=== PATIENT | male | born 1990 | race Caucasian/White ===

== ENCOUNTER 2016-12-10 20:07 | Emergency (ER) | payer SELFPAY ==
[2016-12-10 22:46] LABS: CHLAM PCR NOT DETECTED (NOT DETECT)
[2016-12-10] MEDS ORDERED: KETOROLAC TROMETHAMINE 60 MG/2 ML SDV IM ONE (23:18)
[2016-12-10] MEDS ORDERED: DOXYCYCLINE HYCLATE 100 MG TABLET PO ONE (23:18)
[2016-12-10] MEDS ORDERED: CYCLOBENZAPRINE HCL 10 MG TABLET PO ONE (23:18)
[2016-12-10] MEDS ORDERED: METRONIDAZOLE 500 MG TABLET PO ONE (23:18)
--- NOTE | 2016-12-10 23:24 | ER Document Report ---
ED General - General Chief Complaint: STD Exposure Stated Complaint: STD CHECK Time Seen by Provider: 12/10/16 21:58 Mode of Arrival: Ambulatory Information source: Patient TRAVEL OUTSIDE OF THE [place] IN LAST 30 DAYS: No - HPI Patient complains to provider of: low back pain and dysuria Onset: Last week Quality of pain: Achy Severity: Moderate Pain Level: 3 Associated symptoms: None Exacerbated by: Movement Relieved by: Denies Similar symptoms previously: No Recently seen / treated by doctor: No Notes: Patient is a 26-year-old male who presents to the emergency room complaining of right-sided low back pain, and dysuria, low back pain is been going on since earlier today, dysuria has been going on for the past few days, he reports clear discharge from his penis as well, and painful urination, denies any blood or discoloration, he does report odor to his urine, states his girlfriend was diagnosed with trichomonas recently denies any back injury or trauma, no numbness or tingling to groin or distal extremities, no urinary retention or incontinence - Related Data Allergies/Adverse Reactions: amoxicillin Allergy (Verified 12/10/16 20:31) Penicillins Allergy (Verified 12/10/16 20:32) Past Medical History - General Information source: Patient - Social History Smoking Status: Current Every Day Smoker Frequency of alcohol use: Occasional Drug Abuse: Marijuana Family History: Reviewed & Not Pertinent Patient has suicidal ideation: No Patient has homicidal ideation: No Renal/ Medical History: Denies: Hx Peritoneal Dialysis Review of Systems - Review of Systems Constitutional: No symptoms reported EENT: No symptoms reported Cardiovascular: No symptoms reported Respiratory: No symptoms reported Gastrointestinal: No symptoms reported Genitourinary: See HPI Male Genitourinary: No symptoms reported Musculoskeletal: Back pain Skin: No symptoms reported Hematologic/Lymphatic: No symptoms reported Neurological/Psychological: No symptoms reported -: Yes All other systems reviewed and negative Physical Exam - Vital signs Vitals: Temp Pulse Resp BP Pulse Ox 98.1 F 75 16 139/84 H 99 12/10/16 20:27 12/10/16 20:27 12/10/16 20:27 12/10/16 20:27 12/10/16 20:27 Interpretation: Normal - General General appearance: Appears well, Alert - HEENT Head: Normocephalic, Atraumatic Eyes: Normal Pupils: PERRL - Respiratory Respiratory status: No respiratory distress Chest status: Nontender Breath sounds: Normal Chest palpation: Normal - Cardiovascular Rhythm: Regular Heart sounds: Normal auscultation Murmur: No - Abdominal Inspection: Normal Distension: No distension Bowel sounds: Normal Tenderness: Nontender Organomegaly: No organomegaly - Back Back: Normal, Tender - Tender to palpate in the right paraspinal musculature down into the piriformis muscle, pain with range of motion testing, negative straight leg raise - Extremities General upper extremity: Normal inspection, Nontender, Normal color, Normal ROM , Normal temperature General lower extremity: Normal inspection, Nontender, Normal color, Normal ROM , Normal temperature, Normal weight bearing. No: Ginny's sign - Neurological Neuro grossly intact: Yes Cognition: Normal Orientation: AAOx4 [place] Coma Scale Eye Opening: Spontaneous Felice Coma Scale Verbal: Oriented Felice Coma Scale Motor: Obeys Commands Felice Coma Scale Total: 15 Speech: Normal Motor strength normal: LUE, RUE, LLE, RLE Sensory: Normal - Psychological Associated symptoms: Normal affect, Normal mood - Skin Skin Temperature: Warm Skin Moisture: Dry Skin Color: Normal Course - Re-evaluation Re-evalutation: 12/11/16 03:37 Patient symptoms consistent with sciatica, he is also having dysuria and reports that his girlfriend was recently diagnosed with trichomonas, therefore he was started on antibiotic, advised to follow-up with a primary care provider or return if symptoms worsen, patient acknowledges understanding and agreement with this plan - Vital Signs Vital signs: Temp Pulse Resp BP Pulse Ox 98.4 F 74 16 124/76 98 12/10/16 23:40 12/10/16 23:40 12/10/16 23:40 12/10/16 23:40 12/10/16 23:40 Discharge - Discharge Clinical Impression: STD exposure Low back pain Qualifiers: Chronicity: acute Back pain laterality: right Sciatica presence: with sciatica Sciatica laterality: sciatica of right side Qualified Code(s): M54.41 - Lumbago with sciatica, right side Urinary tract infection Qualifiers: Urinary tract infection type: site unspecified Hematuria presence: without hematuria Qualified Code(s): N39.0 - Urinary tract infection, site not specified Condition: Stable Disposition: HOME, SELF-CARE Instructions: Urinary Tract Infection ([facility]), Low Back Pain ([facility]), Sciatica ([facility] ) Additional Instructions: Follow up with your primary care provider in one to 2 days. Return to the emergency room immediately if symptoms worsen or any additional concerns. Prescriptions: Cyclobenzaprine HCl [Flexeril 10 Mg Tablet] 10 mg PO TID #10 tablet Doxycycline Hyclate 100 mg PO BID #20 tablet Metronidazole [Flagyl 500 mg Tablet] 500 mg PO TID #30 tablet Forms: Restricted Release
[2016-12-10 23:51] VITALS: BP 124/76
== END 2016-12-10 23:45 | disposition home or self-care (01) ==
LOC: ER 20:07
DX: Z20.2 Contact with and (suspected) exposure to infections with a predominantly sexual mode of transmission (principal); M54.41 Lumbago with sciatica, right side; N39.0 Urinary tract infection, site not specified; F17.200 Nicotine dependence, unspecified, uncomplicated; F12.10 Cannabis abuse, uncomplicated
CPT/HCPCS: 99283; 96372; 87491; 87591; J1885

== ENCOUNTER 2017-10-23 18:01 | Emergency (ER) | payer OTHER ==
[2017-10-23 18:06] VITALS: BP 123/79
[2017-10-23] MEDS ORDERED: LIDOCAINE 1% INJ-PF (10 MG/ML) 30 ML SDV INJ ONE (18:44)
--- NOTE | 2017-10-23 18:47 | ER Document Report ---
ED Medical Screen (RME) - General Chief Complaint: Laceration Stated Complaint: HAND LACERATION Time Seen by Provider: 10/23/17 18:44 TRAVEL OUTSIDE OF THE U.[place]. IN LAST 30 DAYS: No - HPI Notes: 10/23/17 18:44 Patient is a 27-year-old male with no significant past medical history who presents to the ED complaining of a laceration between his left fourth and fifth digit near the webbing prior to arrival. Patient states that while he was at work his knife dropped and cut his hand. Patient states that he is still able to move his hand through range of motion, but does have pain in doing so. Patient states that the knife was relatively clean. His tetanus was updated about 3 years ago. Patient has not had any associated numbness or tingling. He has no other concerns or complaints. Patient is allergic to penicillins which causes him to swell up. Patient does admit to smoking cigarettes and marijuana. No other IV drug use. Denies any headache, fever, URI, sore throat, chest pain, palpitations, syncope, cough, shortness of breath , wheeze, dyspnea, abdominal pain, nausea/vomiting/diarrhea, urinary retention, dysuria, hematuria, muscle paralysis/weakness, or rash. I have treated and performed a rapid initial assessment of this patient. A comprehensive ED assessment and evaluation of the patient, analysis of test results and completion of medical decision making process will be conducted by additional ED providers. PHYSICAL EXAMINATION: GENERAL: Well-appearing, well-nourished and in no acute distress. A&Ox4. Answers questions appropriately. LUNGS: Breath sounds clear to auscultation bilaterally and equal. No wheezes rales or rhonchi. HEART: Regular rate and rhythm without murmurs, rubs, gallops. MS: N/v intact distal. Left the bandage in place at this time. Extremities: No cyanosis, clubbing, or edema b/l. NEUROLOGICAL: Normal speech, normal gait. PSYCH: Normal mood, normal affect. - Related Data Allergies/Adverse Reactions: amoxicillin Allergy (Verified 10/23/17 18:02) Penicillins Allergy (Verified 10/23/17 18:02) Past Medical History Renal/ Medical History: Denies: Hx Peritoneal Dialysis Physical Exam - Vital signs Vitals: Temp Pulse Resp BP Pulse Ox 98.5 F 75 18 123/79 97 10/23/17 18:05 10/23/17 18:05 10/23/17 18:05 10/23/17 18:05 10/23/17 18:05 Course - Vital Signs Vital signs: Temp Pulse Resp BP Pulse Ox 98.5 F 75 18 123/79 97 10/23/17 18:05 10/23/17 18:05 10/23/17 18:05 10/23/17 18:05 10/23/17 18:05
--- NOTE | 2017-10-23 20:26 | ER Document Report ---
ED General - General Chief Complaint: Laceration Stated Complaint: HAND LACERATION Time Seen by Provider: 10/23/17 18:44 TRAVEL OUTSIDE OF THE [place] IN LAST 30 DAYS: No - HPI Notes: 27-year-old male, right-handed presents for left hand laceration. Patient was at work when he is actually cut with a bird sitter knife. Clean. Sustain a 2.5-3 cm laceration in the webspace of his between the fourth and fifth digits. Minimal blood loss on scene. Tetanus is up-to-date. Sharp burning pain, nonradiating. Sudden onset. No other modifying factors, no other associated symptoms, no other provocative or palliative factors. - Related Data Allergies/Adverse Reactions: amoxicillin Allergy (Verified 10/23/17 18:02) Penicillins Allergy (Verified 10/23/17 18:02) Past Medical History - Social History Smoking Status: Current Every Day Smoker Chew tobacco use (# tins/day): No Frequency of alcohol use: weekly Drug Abuse: Marijuana Family History: Reviewed & Not Pertinent Patient has suicidal ideation: No Patient has homicidal ideation: No - Medical History Medical History: Negative Renal/ Medical History: Denies: Hx Peritoneal Dialysis Review of Systems - Review of Systems Notes: Denies chest pain, abdominal pain, headache or other complaints Physical Exam - Vital signs Vitals: Temp Pulse Resp BP Pulse Ox 98.5 F 75 18 123/79 97 10/23/17 18:05 10/23/17 18:05 10/23/17 18:05 10/23/17 18:05 10/23/17 18:05 - Notes Notes: General: Well-developed, well-nourished HEENT: Normocephalic. No external trauma noted. No rincon sign, no hemotympanum. Mucosa is moist. No intraoral trauma. Neck: Midline trachea, no JVD. No midline cervical spine tenderness. No step- off or deformity. Chest: Normal excursion, no accessory muscle use. No gross trauma. Abdomen: Soft, nondistended. Nontender. No bruising. Pelvis: Stable. Vascular: Strong and symmetric upper and lower extremity pulses. Well-perfused extremities. Motor: Normal tone and power. Neurologic: Alert, nonfocal. Sensation symmetric and intact. Skin: No significant lacerations or purpura. Extremities: No cyanosis. There is a 3 cm gaping laceration noted in the webspace between the fourth and fifth digits on the left hand, venous oozing is noted. No arterial bleed. Course - Re-evaluation Re-evalutation: This is a well-appearing male with isolated hand laceration. His tetanus status is up-to-date. Plan to proceed with local anesthesia, laceration repair , outpatient follow-up. Sutures to be removed in 10 days. Procedure laceration: After anesthesia with 1% lidocaine without epinephrine via local infiltration, the wound is irrigated copiously with normal saline and explored. There is no evidence of tenderness, nerve or vascular disruption. The wound is then closed using simple interrupted sutures of 5-0 Ethilon, there is a total of 3 cm of wound closure achieved. No complications. Singulair. - Vital Signs Vital signs: Temp Pulse Resp BP Pulse Ox 98.5 F 75 18 123/79 97 10/23/17 18:05 10/23/17 18:05 10/23/17 18:05 10/23/17 18:05 10/23/17 18:05 Discharge - Discharge Clinical Impression: Hand laceration Qualifiers: Encounter type: initial encounter Foreign body presence: without foreign body Laterality: left Qualified Code(s): S61.412A - Laceration without foreign body of left hand, initial encounter Condition: Good Disposition: HOME, SELF-CARE Instructions: Laceration Care ([facility])
== END 2017-10-23 20:56 | disposition home or self-care (01) ==
LOC: ER 18:01
DX: S61.412A Laceration without foreign body of left hand, initial encounter (principal); W26.0XXA Contact with knife, initial encounter; Y99.0 Civilian activity done for income or pay; F17.200 Nicotine dependence, unspecified, uncomplicated
CPT/HCPCS: 99282; J3490

== ENCOUNTER 2018-04-24 17:11 | Emergency (ER) | payer SELFPAY ==
[2018-04-24] MEDS ORDERED: LIDOCAINE 5% (700 MG) TRANSDERMAL ADH..PATCH TP ONE (17:58)
[2018-04-24] MEDS ORDERED: OXYCODONE-ACETAMINOPHEN 5-325 MG TABLET PO ONE (17:58)
--- NOTE | 2018-04-24 18:01 | ER Document Report ---
HPI - HPI Patient complains to provider of: Low back pain Onset: Other - 3 days Onset/Duration: Persistent Quality of pain: Achy Pain Level: 5 Context: Patient presents complaining of right lower back pain for the past 3 days. Patient does have a history of sciatica and suspects the same. Patient also complains of a palpable nodule to lower back area. Patient denies any fever. Patient denies any injury. Patient denies any urinary retention or incontinence symptoms. Associated Symptoms: Other - Right lower back. denies: Fever, Nausea, Vomiting Exacerbated by: Movement Relieved by: Denies Similar symptoms previously: Yes Recently seen / treated by doctor: No - ROS ROS below otherwise negative: Yes Systems Reviewed and Negative: Yes All other systems reviewed and negative - CONSTITUTIONAL Constitutional: DENIES: Fever, Chills - NEURO Neurology: DENIES: Headache - GASTROINTESTINAL Gastrointestinal: DENIES: Nausea - URINARY Urinary: DENIES: Dysuria - MUSCULOSKELETAL Musculoskeletal: REPORTS: Back Pain - DERM Skin Color: Normal Skin Problems: Cyst Past Medical History - General Information source: Patient - Social History Smoking Status: Never Smoker Frequency of alcohol use: Occasional Drug Abuse: Marijuana Occupation: [employer] Lives with: Family Family History: Reviewed & Not Pertinent Renal/ Medical History: Denies: Hx Peritoneal Dialysis GI Medical History: Reports: Hx Crohn's Disease Musculoskeletal Medical History: Reports Other - Sciatica Surgical Hx: Negative Vertical Provider Document - CONSTITUTIONAL Agree With Documented VS: Yes Exam Limitations: No Limitations General Appearance: WD/WN, No Apparent Distress Notes: PHYSICAL EXAMINATION: GENERAL: Well-appearing, well-nourished and in no acute distress. HEAD: Atraumatic, normocephalic. EYES: sclera clear, anicteric, conjunctiva are normal. ENT: nares patent, Moist mucous membranes. NECK: Normal range of motion, supple no lymphadenopathy LUNGS: respirations unlabored HEART: Regular rate and rhythm without murmurs EXTREMITIES: Normal range of motion, no pitting or edema. No cyanosis. Gait normal, pt ambulates without difficulty BACK: Right lumbar paraspinal tenderness, no midline tenderness, right SI joint tenderness no deformities or step-offs. No CVA tenderness. NEUROLOGICAL: Cranial nerves grossly intact. Normal speech, normal gait. No saddle anesthesia. PSYCH: Normal mood, normal affect. SKIN: Patient with mobile cystic type lesion to the right lower back, skin warm , Dry, normal turgor, no rashes - INFECTION CONTROL TRAVEL OUTSIDE OF THE [place] IN LAST 30 DAYS: No Course - Re-evaluation Re-evalutation: 04/24/18 17:59 The patient presents with low back pain without signs of spinal cord compression , cauda equina syndrome, infection, aneurysm, or other serious etiology. The patient is neurologically intact. Given the extremely risk of these diagnoses further testing and evaluation for these possibilities does not appear to be indicated at this time. Patient has been instructed to return if the symptoms worsen or change in any way. - Vital Signs Vital signs: Temp Pulse Resp BP Pulse Ox 98.7 F 74 16 118/71 98 04/24/18 17:16 04/24/18 17:16 04/24/18 17:16 04/24/18 17:16 04/24/18 17:16 Discharge - Discharge Clinical Impression: Subcutaneous cyst Sciatica Qualifiers: Laterality: right Qualified Code(s): M54.31 - Sciatica, right side Condition: Stable Disposition: HOME, SELF-CARE Instructions: Ice Packs ([facility]), Low Back Pain ([facility]), Sciatica ([facility]) Additional Instructions: Return immediately for any new or worsening symptoms Followup with your primary care provider, call tomorrow to make a followup appointment Follow-up with orthopedics for further evaluation of your chronic back pain Follow-up with a general surgeon for further evaluation of cystic lesion to lower back Prescriptions: Cyclobenzaprine HCl [Flexeril 10 Mg Tablet] 10 mg PO TID #15 tablet Naproxen [Naprosyn 250 Nmg Tablet] 1 tab PO BID #14 tablet Forms: Return to Work Referrals: [facility] [Provider Group] - Follow up as needed [facility] [Provider Group] - Follow up as needed
[2018-04-24 18:29] VITALS: BP 123/76
== END 2018-04-24 18:28 | disposition home or self-care (01) ==
LOC: ER 17:11
DX: M54.41 Lumbago with sciatica, right side (principal); L72.9 Follicular cyst of the skin and subcutaneous tissue, unspecified; F12.10 Cannabis abuse, uncomplicated
CPT/HCPCS: 99283

== ENCOUNTER 2018-04-30 17:27 | Emergency (ER) | payer SELFPAY ==
[2018-04-30 17:43] VITALS: BP 127/80
[2018-04-30] MEDS ORDERED: DEXAMETHASONE CONC 1 MG/ML SOLN PO ONE (18:36)
--- NOTE | 2018-04-30 18:41 | ER Document Report ---
ED Medical Screen (RME) - General Chief Complaint: Neck Swelling Stated Complaint: THROAT PAIN Time Seen by Provider: 04/30/18 18:29 Mode of Arrival: Ambulatory TRAVEL OUTSIDE OF THE [place] 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 He notes that his throat has felt somewhat swollen since that time. Denies any difficulty breathing, denies any chest pain, fevers, chills, emesis, lightheadedness, passing out, abdominal pain, constipation, dysuria. - Related Data Allergies/Adverse Reactions: amoxicillin Allergy (Verified 04/24/18 17:14) Penicillins Allergy (Verified 04/24/18 17:14) Past Medical History - General Information source: Patient - Social History Cigarette use (# per day): No Chew tobacco use (# tins/day): No Frequency of alcohol use: Occasional Drug Abuse: Marijuana Renal/ Medical History: Denies: Hx Peritoneal Dialysis GI Medical History: Reports: Hx Crohn's Disease Review of Systems - Review of Systems -: Yes All other systems reviewed and negative Physical Exam - Vital signs Vitals: Temp Pulse Resp BP Pulse Ox 99.0 F 78 16 127/80 H 99 04/30/18 17:42 04/30/18 17:42 04/30/18 17:42 04/30/18 17:42 04/30/18 17:42 - General General appearance: Appears well In distress: None - HEENT Head: Normocephalic Eyes: Normal Conjunctiva: Normal Cornea: Normal Extraocular movements intact: Yes Eyelashes: Normal Pupils: PERRL Pharynx: Erythema, Uvular edema Neck: Lymphadenopathy, Shotty nodes - Respiratory Respiratory status: No respiratory distress Chest status: Nontender Breath sounds: Normal Chest palpation: Normal - Cardiovascular Rhythm: Regular Heart sounds: Normal auscultation Murmur: No - Abdominal Inspection: Normal Distension: No distension Tenderness: Nontender Organomegaly: No organomegaly - Back Back: Normal - Extremities General upper extremity: Normal inspection, Nontender, Normal ROM, Normal strength General lower extremity: Normal inspection, Nontender, Normal ROM, Normal strength - Neurological Neuro grossly intact: Yes Cognition: Normal Orientation: AAOx4 [place] Coma Scale Eye Opening: Spontaneous Felice Coma Scale Verbal: Oriented [place] Coma Scale Motor: Obeys Commands [place] Coma Scale Total: 15 Speech: Normal Course - Re-evaluation Re-evalutation: 04/30/18 18:44 Well-appearing 27-year-old man presents for evaluation of sore throat. Patient has no systemic signs to suggest toxic underlying cause such as epiglottitis. Does not have any symptoms to suggest [place] angina. Patient has an obvious pharyngitis, his uvula is erythematous. Do not believe that he has a strep pharyngitis given his age, he does have a cough, lowers his risk of strep significantly. We will plan for this patient undergo treatment with Decadron discharge with follow-up and return precautions encouraged to follow-up with his primary physician. - Vital Signs Vital signs: Temp Pulse Resp BP Pulse Ox 99.0 F 78 16 127/80 H 99 04/30/18 17:42 04/30/18 17:42 04/30/18 17:42 04/30/18 17:42 04/30/18 17:42 Doctor's Discharge - Discharge Clinical Impression: Pharyngitis Qualifiers: Pharyngitis/tonsillitis etiology: unspecified etiology Qualified Code(s): J02.9 - Acute pharyngitis, unspecified Condition: Good Disposition: HOME, SELF-CARE Instructions: Sore Throat ([facility]) Additional Instructions: You were seen today in the emergency department for your sore throat. You had an evaluation including a physical exam, it appears that you have pharyngitis. You were given a dose of Decadron. You should continue to monitor yourself for symptoms, use ibuprofen as well as the naproxen for your sore throat as necessary. Make sure you are drinking cold drinks to help soothe your throat. In case of any worsening swelling, inability to eat or drink, if you have wheezing or cannot catch her breath return to the emergency room as it may be a more serious condition.
== END 2018-04-30 18:45 | disposition home or self-care (01) ==
LOC: ER 17:27
DX: J02.9 Acute pharyngitis, unspecified (principal); R59.0 Localized enlarged lymph nodes; F12.10 Cannabis abuse, uncomplicated; Z88.0 Allergy status to penicillin; R05 Cough
CPT/HCPCS: 99283; J8540

== ENCOUNTER 2018-10-04 11:25 | Emergency (ER) | payer OTHER ==
--- NOTE | 2018-10-04 13:04 | ER Document Report ---
ED Medical Screen (RME) - General Chief Complaint: Passed Out Prior to Arrival Stated Complaint: SYNCOPE Time Seen by Provider: 10/04/18 12:54 TRAVEL OUTSIDE OF THE [place] IN LAST 30 DAYS: No - HPI Notes: 10/04/18 13:03 Patient is a 28-year-old male that presents to the emergency department for chief complaint of syncope. Patient was at work and cut his left middle finger on a piece of plastic. He states he then had a syncopal episode. He denies prodrome of lightheadedness nausea or feeling hot. He states he woke up on the ground. He is not sure if he hit his head. He states for a few seconds he felt disoriented but then became oriented again. He had no loss of bowel or bladder incontinence. He states he is still feeling very lightheaded and dizzy patient states he has had a syncopal episode in the last few months but was heavily intoxicated at the time.. He denies history of seizures in the past but a coworker that witnessed the events that he was shaking all over ROS: GENERAL: Denies fever of chills CV: Denies chest pain PHYSICAL EXAMINATION: GENERAL: Well-appearing, well-nourished and in no acute distress. HEAD: Atraumatic, normocephalic. EYES: Pupils equal round extraocular movements intact, conjunctiva are normal. ENT: Nares patent NECK: Normal range of motion LUNGS: No respiratory distress Musculoskeletal: Normal range of motion NEUROLOGICAL: Normal speech, normal gait. PSYCH: Normal mood, normal affect. MDM: Patient seen and examined for rapid initial assessment. Vital signs reviewed. A comprehensive ED assessment and evaluation of the patient, analysis of test results and completion of the medical decision making process will be conducted by additional ED providers. - Related Data Allergies/Adverse Reactions: amoxicillin Allergy (Verified 04/24/18 17:14) Penicillins Allergy (Verified 04/24/18 17:14) Past Medical History - Social History Chew tobacco use (# tins/day): No Frequency of alcohol use: Occasional Drug Abuse: Marijuana Renal/ Medical History: Denies: Hx Peritoneal Dialysis GI Medical History: Reports: Hx Crohn's Disease Physical Exam - Vital signs Vitals: Temp Pulse Resp BP Pulse Ox 98.0 F 54 L 18 103/66 100 10/04/18 11:36 10/04/18 11:36 10/04/18 11:36 10/04/18 11:36 10/04/18 11:36 Course - Vital Signs Vital signs: Temp Pulse Resp BP Pulse Ox 98.0 F 54 L 18 103/66 100 10/04/18 11:36 10/04/18 11:36 10/04/18 11:36 10/04/18 11:36 10/04/18 11:36
--- NOTE | 2018-10-04 13:45 | RADIOLOGY REPORT (SQ) ---
EXAM DESCRIPTION: CT HEAD WITHOUT COMPLETED DATE/TIME: 10/04/2018 1:35 pm REASON FOR STUDY: syncope COMPARISON: None. TECHNIQUE: Axial images acquired through the brain without intravenous contrast. Images reviewed wi th bone, brain and subdural windows. Additional sagittal and coronal reconstructions were generated. Images stored on PACS. All CT scanners at this facility use dose modulation, iterative reconstruction, and/or weight based d osing when appropriate to reduce radiation dose to as low as reasonably achievable (ALARA). [facility]: Dose Right [facility]: CareDose [facility]: Dose Right [facility]: Teradose 4D [facility]: Covocative RADIATION DOSE: CT Rad equipment meets quality standard of care and radiation dose reduction techniq ues were employed. CTDIvol: 53.2 mGy. DLP: 991 mGy-cm. mGy. LIMITATIONS: None. FINDINGS: VENTRICLES: Normal size and contour. CEREBRUM: No masses. No hemorrhage. No midline shift. No evidence for acute infarction. Normal gra y/white matter differentiation. No areas of low density in the white matter. CEREBELLUM: No masses. No hemorrhage. No alteration of density. No evidence for acute infarction. EXTRAAXIAL SPACES: No fluid collections. No masses. ORBITS AND GLOBE: No intra- or extraconal masses. Normal contour of globe without masses. CALVARIUM: No fracture. PARANASAL SINUSES: No fluid or mucosal thickening. SOFT TISSUES: No mass or hematoma. OTHER: No other significant finding. IMPRESSION: NORMAL BRAIN CT WITHOUT CONTRAST. EVIDENCE OF ACUTE STROKE: NO. COMMENT: Quality ID # [id number]: Final reports with documentation of one or more dose reduction techniques (e.g., Automated exposure control, adjustment of the mA and/or kV according to patient size, use of iterative reconstruction technique) TECHNICAL DOCUMENTATION: JOB ID: [id number] [employer]- All Rights Reserved Reading location - IP/workstation name: [email or web address]
--- NOTE | 2018-10-04 13:47 | RADIOLOGY REPORT (SQ) ---
EXAM DESCRIPTION: CHEST SINGLE VIEW COMPLETED DATE/TIME: 10/04/2018 1:34 pm REASON FOR STUDY: syncope COMPARISON: None. EXAM PARAMETERS: NUMBER OF VIEWS: One view. TECHNIQUE: Single frontal radiographic view of the chest acquired. RADIATION DOSE: NA LIMITATIONS: None. FINDINGS: LUNGS AND PLEURA: No opacities, masses or pneumothorax. No pleural effusion. MEDIASTINUM AND HILAR STRUCTURES: No masses. Contour normal. HEART AND VASCULAR STRUCTURES: Heart normal in size. Normal vasculature. BONES: No acute findings. HARDWARE: None in the chest. OTHER: No other significant finding. IMPRESSION: NO ACUTE RADIOGRAPHIC FINDING IN THE CHEST. TECHNICAL DOCUMENTATION: JOB ID: [id number] [employer]- All Rights Reserved Reading location - IP/workstation name: [email or web address]
[2018-10-04 13:48] LABS: ABSOLUTE EOSINOPHILS # (AUTO) 0.1 10^3/uL (0.0-0.6); ABSOLUTE LYMPHOCYTES (AUTO) 1.8 10^3/uL (0.5-4.7); ABSOLUTE MONOCYTES (AUTO) 0.5 10^3/uL (0.1-1.4); ABSOLUTE NEUT (AUTO) 6.6 10^3/uL (1.7-8.2); BASOPHILS % (AUTO) 0.4 % (0-2); EOSINOPHILS % (AUTO) 1.4 % (0-6); HEMATOCRIT 46.6 % (37.9-51.0); HEMOGLOBIN 16.1 g/dL (13.5-17.0); LYMPHOCYTES % (AUTO) 20.1 % (13-45); MEAN CORPUSCULAR HGB CONC 34.6 g/dL (32.0-36.0); MEAN CORPUSCULAR VOLUME 90 fl (80-97); MONOCYTES % (AUTO) 5.7 % (3-13); PLATELET COUNT 235 10^3/uL (150-450); RED BLOOD COUNT 5.19 10^6/uL (4.35-5.55); RED CELL DISTRIBUTION WIDTH 12.6 % (11.5-14.0); SEGMENTED NEUTROPHILS % (AUTO) 72.4 % (42-78); TOTAL CELLS COUNTED % (AUTO) 100 %; WHITE BLOOD COUNT 9.1 10^3/uL (4.0-10.5)
[2018-10-04 14:12] LABS: ANION GAP 11 (5-19); BLOOD UREA NITROGEN 14 mg/dL (7-20); CALCIUM 10.3 mg/dL (8.4-10.2); CARBON DIOXIDE 25 mmol/L (22-30); CHLORIDE 102 mmol/L (98-107); GLUCOSE 86 mg/dL (75-110); POTASSIUM 4.4 mmol/L (3.6-5.0); SODIUM 137.6 mmol/L (137-145)
[2018-10-04 14:13] LABS: ALCOHOL < 10 mg/dL (NONE DETECTED)
--- NOTE | 2018-10-04 16:24 | EKG REPORT ---
SEVERITY:- ABNORMAL ECG - SINUS RHYTHM. NONSPECIFIC INTRAVENTRICULAR CONDUCTION DELAY : Confirmed by: Jerrell Curran MD 04-Oct-2018 16:22:28
[2018-10-04] MEDS ORDERED: LORAZEPAM 1 MG TABLET PO ONE (17:12)
--- NOTE | 2018-10-04 17:13 | ER Document Report ---
ED Dizziness/Weakness - General Chief Complaint: Passed Out Prior to Arrival Stated Complaint: SYNCOPE Time Seen by Provider: 10/04/18 12:54 Mode of Arrival: Ambulatory Information source: Patient Notes: Pt is a 28 year old male who presents to the ER today for syncopal episode that occurred while he was bandaging his finger after accidentally cutting it on plastic at work today. He is up to date on tetanus. Pt states that he did not get lightheaded, and was not bothered by the cut on his finger, was bandaging it and just "fell out." He states it was witnessed by his boss who says he shook all over for a few minutes and was "pouring sweat" at the end. Pt woke up very tired and confused with a headache to the front of his head. He has had an episode like this in the past but it was 10 years ago, was never evalauted for it. Pt denies any sick symptoms lately. TRAVEL OUTSIDE OF THE [place] IN LAST 30 DAYS: No - Related Data Allergies/Adverse Reactions: amoxicillin Allergy (Verified 04/24/18 17:14) Penicillins Allergy (Verified 04/24/18 17:14) Past Medical History - General Information source: Patient - Social History Smoking Status: Current Every Day Smoker Chew tobacco use (# tins/day): No Frequency of alcohol use: Occasional Drug Abuse: Marijuana Family History: Reviewed & Not Pertinent Patient has suicidal ideation: No Patient has homicidal ideation: No Renal/ Medical History: Denies: Hx Peritoneal Dialysis GI Medical History: Reports: Hx Crohn's Disease Review of Systems - Review of Systems Constitutional: No symptoms reported EENT: No symptoms reported Cardiovascular: No symptoms reported Respiratory: No symptoms reported Gastrointestinal: No symptoms reported Genitourinary: No symptoms reported Male Genitourinary: No symptoms reported Musculoskeletal: No symptoms reported Skin: See HPI Hematologic/Lymphatic: No symptoms reported Neurological/Psychological: See HPI Physical Exam - Vital signs Vitals: Temp Pulse Resp BP Pulse Ox 98.0 F 54 L 18 103/66 100 10/04/18 11:36 10/04/18 11:36 10/04/18 11:36 10/04/18 11:36 10/04/18 11:36 - Notes Notes: PHYSICAL EXAMINATION: GENERAL: well-appearing and in no acute distress. HEAD: Atraumatic, normocephalic. EYES: Pupils equal round and reactive to light, extraocular movements intact, sclera anicteric, conjunctiva are normal. NECK: Normal range of motion, supple without lymphadenopathy LUNGS: CTAB and equal. No wheezes rales or rhonchi. HEART: Regular rate and rhythm without murmurs ABDOMEN: Soft, no tenderness. No guarding, no rebound EXTREMITIES: Normal range of motion, no pitting edema. No cyanosis. NEUROLOGICAL: Cranial nerves grossly intact. Normal sensory/motor exams. PSYCH: Normal mood, normal affect. SKIN: Warm, Dry, normal turgor,small less than 1cm laceration to left 3rd digit over PIP joint, no bleeding Course - Re-evaluation Re-evalutation: 10/04/18 23:[address] head unremarkable today, pt does not want me to suture laceration, it was cleaned, bandaged and his finger placed in finger splint. I believe pt had a seizure today, I offered to send him to another facility with neurology land acquisition analyst (we do not have neurology on today) to be further evaluated for new seizures, but he wants to go back to work, I will give him neurology followup and send him home with diastat rectally if needed during seizure, he got ativan here. As he has only had two episodes in 10 years of possible seizures, I will not start him on seizure medication daily. Pt agrees with this plan. - Vital Signs Vital signs: Temp Pulse Resp BP Pulse Ox 98.3 F 63 18 119/69 100 10/04/18 17:37 10/04/18 17:37 10/04/18 11:36 10/04/18 17:37 10/04/18 17:37 - Laboratory Result Diagrams: 10/04/18 13:31 10/04/18 13:31 Laboratory results interpreted by me: 10/04/18 13:31 Calcium 10.3 H Discharge - Discharge Clinical Impression: Observed seizure-like activity Finger laceration Qualifiers: Encounter type: initial encounter Finger: ring finger Damage to nail status: without damage Foreign body presence: without foreign body Laterality: left Qualified Code(s): S61.215A - Laceration without foreign body of left ring finger without damage to nail, initial encounter Condition: Stable Disposition: HOME, SELF-CARE Instructions: New Seizure ([facility]) Additional Instructions: Return immediately for any new or worsening symptoms. Follow up with the neurologist, call tomorrow to make followup appointment. [facility] Address: [address] [place] [address] Prescriptions: Diazepam [Diastat Acudial 10 mg/2 ml Rectal Gel] 1 each RC PRN PRN #1 kit PRN Reason: Forms: Return to Work
[2018-10-04 17:39] VITALS: BP 119/69
== END 2018-10-04 18:17 | disposition home or self-care (01) ==
LOC: ER 11:25
DX: R56.9 Unspecified convulsions (principal); R55 Syncope and collapse; S61.214A Laceration without foreign body of right ring finger without damage to nail, initial encounter; W26.9XXA Contact with unspecified sharp object(s), initial encounter; Y99.0 Civilian activity done for income or pay; F17.200 Nicotine dependence, unspecified, uncomplicated
CPT/HCPCS: 36415; 70450; 71045; 80048; 80307; 84484; 85025; 93005; 93010; 99284

== ENCOUNTER 2019-01-24 00:09 | Emergency (ER) | payer SELFPAY ==
[2019-01-24] MEDS ORDERED: ONDANSETRON 4 MG TAB.RAPDIS PO ONE (03:43)
[2019-01-24] MEDS ORDERED: LIDOCAINE 1%/EPINEPHRINE INJ 20 ML VIAL INJ ONE (03:43)
[2019-01-24] MEDS ORDERED: MORPHINE SULFATE 10 MG/ML INJ IM ONE (03:43)
--- NOTE | 2019-01-24 03:44 | ER Document Report ---
ED Skin Rash/Insect Bite/Abscs - General Chief Complaint: Cyst Stated Complaint: POSSIBLE CYST ON SCIATIC NERVE, PAIN Time Seen by Provider: 01/24/19 03:38 Notes: Patient is a 28-year-old male that comes to the emergency department for chief complaint of 2 to 3 days of progressive worsening pain over his right lower back at the top of his buttocks. He states that it is hard to sit or walk now because the pain is gotten so bad. He denies fever/chills. He states he was told in the past that he might have a "sciatic problem", he is unsure if this is related. He denies any daily medications, surgical history, IV drug abuse. He denies focal numbness or weakness, incontinence. He denies any other areas of pain. TRAVEL OUTSIDE OF THE [place] IN LAST 30 DAYS: No - Related Data Allergies/Adverse Reactions: amoxicillin Allergy (Verified 04/24/18 17:14) Penicillins Allergy (Verified 04/24/18 17:14) Past Medical History - General Information source: Patient - Social History Smoking Status: Never Smoker Drug Abuse: None Lives with: Family Family History: Reviewed & Not Pertinent Renal/ Medical History: Denies: Hx Peritoneal Dialysis GI Medical History: Reports: Hx Crohn's Disease Surgical Hx: Negative - Immunizations Immunizations up to date: Yes Hx Diphtheria, Pertussis, Tetanus Vaccination: Yes Review of Systems - Review of Systems Constitutional: No symptoms reported EENT: No symptoms reported Cardiovascular: No symptoms reported Respiratory: No symptoms reported Gastrointestinal: No symptoms reported Genitourinary: No symptoms reported Male Genitourinary: No symptoms reported Musculoskeletal: See HPI Skin: See HPI Hematologic/Lymphatic: No symptoms reported Neurological/Psychological: No symptoms reported Physical Exam - Vital signs Vitals: Temp Pulse Resp BP Pulse Ox 98.4 F 69 16 103/69 98 01/24/19 00:53 01/24/19 00:53 01/24/19 00:53 01/24/19 00:53 01/24/19 00:53 - Notes Notes: GENERAL: Alert, interacts well. No acute distress. HEAD: Normocephalic, atraumatic. EYES: Pupils equal, round, and reactive to light. Extraocular movements intact. ENT: Oral mucosa moist, tongue midline. Oropharynx unremarkable. Airway patent. LUNGS: Clear to auscultation bilaterally, no wheezes, rales, or rhonchi. No respiratory distress. HEART: Regular rate and rhythm. No murmur ABDOMEN: Soft, non-tender. Non-distended. Bowel sounds present in all 4 quadrants. GENITOURINARY: Deferred EXTREMITIES: Moves all 4 extremities spontaneously. No edema, normal radial and dorsalis pedis pulses bilaterally. No cyanosis. BACK: no cervical, thoracic, lumbar midline tenderness. No saddle anesthesia, normal distal neurovascular exam. Moves all extremities in full range of motion. NEUROLOGICAL: Alert and oriented x3. Normal speech. Cranial nerves II through XII grossly intact. PSYCH: Normal affect, normal mood. SKIN: Erythema and tenderness over the pilonidal cyst area over the superior aspect of the right buttock, no overt induration, no noted fluctuance, otherwise unremarkable skin exam. Course - Re-evaluation Re-evalutation: Patient has erythema, tenderness, and evidence of infection in the right pilonidal cyst area. However there is no fluctuance, there is minimal induration, patient is extremely skinny and I cannot see a drainable fluid pocket on bedside ultrasound. There are no other concerning findings including no evidence of extension to the perianal area, no neurological deficits, no fever. As result we will do warm compresses, antibiotic, symptom management, and follow-up with strict return precautions. I discussed this in detail with patient and girlfriend. They state understanding and agreement. - Vital Signs Vital signs: Temp Pulse Resp BP Pulse Ox 98.4 F 77 20 122/77 97 01/24/19 05:39 01/24/19 05:39 01/24/19 05:39 01/24/19 05:39 01/24/19 05:39 Discharge - Discharge Clinical Impression: Pilonidal cyst, Skin infection Disposition: HOME, SELF-CARE Additional Instructions: The area is consistent with a pilonidal cyst with infection although no abscesses noted on your evaluation today. Recommend warm compresses, the antibiotics, and symptoms should resolve with time. If this keeps occurring you may need to be managed by the surgical clinic to prevent this from recurring. Return if you worsen including swelling of the area, spreading redness, fever/chills, or any other concerning symptoms. Prescriptions: Doxycycline Hyclate 100 mg PO BID #14 capsule Hydrocodone/Acetaminophen [Brant 5-325 mg Tablet] 1 - 2 tab PO ASDIR #12 tablet Sulfamethoxazole/Trimethoprim [Bactrim Ds Tablet] 1 each PO BID #14 tablet Forms: Return to Work
[2019-01-24] MEDS ORDERED: HYDROCODONE/ACETAMINOPHEN 5-325 MG (6 TAB/ER DISP) PO PRN (05:21)
[2019-01-24] MEDS ORDERED: DOXYCYCLINE HYCLATE 100 MG TABLET PO ONE (05:21)
[2019-01-24] MEDS ORDERED: SULFAMETHOXAZOLE/TRIMETHOPRIM 800-160 MG TABLET PO ONE (05:21)
[2019-01-24 05:41] VITALS: BP 122/77
== END 2019-01-24 05:41 | disposition home or self-care (01) ==
LOC: ER 00:09
DX: L05.91 Pilonidal cyst without abscess (principal); L08.9 Local infection of the skin and subcutaneous tissue, unspecified; Z88.0 Allergy status to penicillin
CPT/HCPCS: 99282; S0119; J3490; J2270

== ENCOUNTER 2019-04-14 16:27 | Emergency (ER) | payer SELFPAY ==
[2019-04-14] MEDS ORDERED: NORMAL SALINE 1000 ML 1,000 ML IV ONE (16:49)
[2019-04-14] MEDS ORDERED: ONDANSETRON HCL INJ/PF 4 MG/2 ML SDV IV ONE (16:49)
--- NOTE | 2019-04-14 17:12 | ER Document Report ---
ED GI/ - General Stated Complaint: STOMACH PAIN Time Seen by Provider: 04/14/19 16:40 Primary Care Provider: [facility] [Provider Group] - Follow up as needed IND[place]NA TOLENTINO MD [NO LOCAL MD] - Follow up as needed TEENA CEDENO MD [ACTIVE STAFF] - Follow up as needed ISIDRA RENEE MD [ACTIVE STAFF] - Follow up as needed Mode of Arrival: Ambulatory Information source: Patient Notes: Patient presents complaining of left-sided abdominal pain off and on for the past 3 months. Patient states that he thought he may have seen blood in his stool recently. Patient does complain of nausea. Patient complains of increased severe pain with bowel movements. Patient denies any vomiting or diarrhea. Patient denies any fever. TRAVEL OUTSIDE OF THE [place] IN LAST 30 DAYS: No - HPI Patient complains to provider of: Abdominal pain. No: Vomiting Onset: Other - Off and on x3 months Timing/Duration: Waxing and waning Quality of pain: Achy Pain Level: 3 Location: LLQ Associated symptoms: Nausea. denies: Chest pain, Dysuria, Fever, Loss of appetite, Urinary hesitancy, Urinary frequency, Urinary retention, Urinary urgency, Vomiting Exacerbated by: Other - Bowel movements Relieved by: Denies Similar symptoms previously: No Recently seen / treated by doctor: No - Related Data Allergies/Adverse Reactions: amoxicillin Allergy (Verified 04/24/18 17:14) Penicillins Allergy (Verified 04/24/18 17:14) Past Medical History - General Information source: Patient - Social History Smoking Status: Current Every Day Smoker Smoking Education Provided: Yes Frequency of alcohol use: None Drug Abuse: None Occupation: Foodservice Family History: Reviewed & Not Pertinent - Medical History Medical History: Negative Renal/ Medical History: Denies: Hx Peritoneal Dialysis Surgical Hx: Negative - Immunizations Immunizations up to date: Yes Hx Diphtheria, Pertussis, Tetanus Vaccination: Yes Review of Systems - Review of Systems Constitutional: No symptoms reported. denies: Fever, Recent illness EENT: No symptoms reported Cardiovascular: No symptoms reported. denies: Chest pain Respiratory: No symptoms reported Gastrointestinal: Abdominal pain, Nausea, Blood streaked bowels. denies: Diarrhea, Vomiting, Constipation, Black stools Genitourinary: No symptoms reported. denies: Dysuria Male Genitourinary: No symptoms reported Musculoskeletal: No symptoms reported. denies: Back pain Skin: No symptoms reported Hematologic/Lymphatic: No symptoms reported Neurological/Psychological: No symptoms reported Physical Exam - Vital signs Vitals: Temp Pulse Resp BP Pulse Ox 98.0 F 90 18 127/70 H 98 04/14/19 16:33 04/14/19 16:33 04/14/19 16:33 04/14/19 16:33 04/14/19 16:33 - General General appearance: Appears well, Alert In distress: None - HEENT Head: Normocephalic, Atraumatic Eyes: Normal Conjunctiva: Normal Nasal: Normal Mouth/Lips: Normal Mucous membranes: Normal Neck: Normal, Supple. No: Lymphadenopathy - Respiratory Respiratory status: No respiratory distress Chest status: Nontender Breath sounds: Nonproductive cough. No: Rales, Rhonchi, Stridor, Wheezing Chest palpation: Normal - Cardiovascular Rhythm: Regular Heart sounds: S1 appreciated, S2 appreciated Murmur: No - Abdominal Inspection: Normal Distension: No distension Bowel sounds: Normal Tenderness: Tender - L side of abd Organomegaly: No organomegaly - Back Back: Normal, Nontender - Extremities General upper extremity: Normal inspection, Normal strength General lower extremity: Normal inspection, Normal strength - Neurological Neuro grossly intact: Yes Cognition: Normal [place] Coma Scale Eye Opening: Spontaneous Felice Coma Scale Verbal: Oriented Felice Coma Scale Motor: Obeys Commands [place] Coma Scale Total: 15 - Psychological Associated symptoms: Normal affect, Normal mood - Skin Skin Temperature: Warm Skin Moisture: Dry Skin Color: Normal Course - Re-evaluation Re-evalutation: 04/14/19 20:58 Patient's abdomen soft, no guarding. Patient with negative Hemoccult while here today. No acute findings noted on CT scan. Patient with benign diagnostic evaluation here today. Patient encouraged to follow-up with a GI specialist for further evaluation and likely colonoscopy. Discussed worsening symptoms that patient should return immediately for. Patient verbalized understanding and agrees with plan of care. Patient presents with abdominal pain without signs of peritonitis or other life-threatening or serious etiology. Patient appears stable for discharge and has been instructed to return immediately if the symptoms worsen in any way for reevaluation. - Vital Signs Vital signs: Temp Pulse Resp BP Pulse Ox 98.2 F 58 L 18 112/68 99 04/14/19 21:21 04/14/19 21:21 04/14/19 16:34 04/14/19 21:21 04/14/19 21:21 - Laboratory Result Diagrams: 04/14/19 17:03 04/14/19 17:03 Laboratory results interpreted by me: 04/14/19 04/14/19 04/14/19 17:03 17:03 17:23 Hgb 17.1 H Calcium 10.3 H Albumin 5.2 H Urine Ascorbic Acid 20 H Labs- Entire Visit 04/14/19 04/14/19 04/14/19 17:03 17:03 17:03 WBC 8.0 RBC 5.44 Hgb 17.1 H Hct 48.9 MCV 90 MCH 31.4 MCHC 34.9 RDW 13.4 Plt Count 225 Lymph % (Auto) 26.2 Cial[place] % (Auto) 6.6 Eos % (Auto) 1.2 Baso % (Auto) 0.5 Absolute Neuts (auto) 5.2 Absolute Lymphs (auto) 2.1 Absolute Monos (auto) 0.5 Absolute Eos (auto) 0.1 Absolute Basos (auto) 0.0 Seg Neutrophils % 65.5 PT 13.8 INR 1.06 APTT 29.0 Sodium 138.7 Potassium 4.4 Chloride 101 Carbon Dioxide 26 Anion Gap 12 BUN 9 Creatinine 0.84 Est GFR ( Amer) > 60 Est GFR (MDRD) Non-Af > 60 Glucose 80 Calcium 10.3 H Total Bilirubin 0.7 Direct Bilirubin 0.1 Neonat Total Bilirubin Not Reportable Neonat Direct Bilirubin Not Reportable Neonat Indirect Bili Not Reportable AST 18 ALT 16 Alkaline Phosphatase 49 Total Protein 7.9 Albumin 5.2 H Lipase 72.4 Urine Color Urine Appearance Urine pH Ur Specific [place] Urine Protein Urine Glucose (UA) Urine Ketones Urine Blood Urine Nitrite Urine Bilirubin Urine Urobilinogen Ur Leukocyte Esterase Urine WBC (Auto) Urine Mucus (Auto) Urine Ascorbic Acid 04/14/19 17:23 WBC RBC Hgb Hct MCV MCH MCHC RDW Plt Count Lymph % (Auto) [place] % (Auto) Eos % (Auto) Baso % (Auto) Absolute Neuts (auto) Absolute Lymphs (auto) Absolute Monos (auto) Absolute Eos (auto) Absolute Basos (auto) Seg Neutrophils % PT INR APTT Sodium Potassium Chloride Carbon Dioxide Anion Gap BUN Creatinine Est GFR ( Amer) Est GFR (MDRD) Non-Af Glucose Calcium Total Bilirubin Direct Bilirubin Neonat Total Bilirubin Neonat Direct Bilirubin Neonat Indirect Bili AST ALT Alkaline Phosphatase Total Protein Albumin Lipase Urine Color YELLOW Urine Appearance CLEAR Urine pH 5.0 Ur Specific [place] 1.011 Urine Protein NEGATIVE Urine Glucose (UA) NEGATIVE Urine Ketones NEGATIVE Urine Blood NEGATIVE Urine Nitrite NEGATIVE Urine Bilirubin NEGATIVE Urine Urobilinogen NEGATIVE Ur Leukocyte Esterase NEGATIVE Urine WBC (Auto) 0 Urine Mucus (Auto) RARE Urine Ascorbic Acid 20 H - Diagnostic Test Radiology reviewed: Reports reviewed Discharge - Discharge Clinical Impression: Abdominal pain Qualifiers: Abdominal location: left lower quadrant Qualified Code(s): R10.32 - Left lower quadrant pain Condition: Stable Disposition: HOME, SELF-CARE Instructions: Abdominal Pain ([facility]) Additional Instructions: Return immediately for any new or worsening symptoms Followup with your primary care provider, call tomorrow to make a followup appointment Follow-up with a operations advisor for further evaluation Prescriptions: Ondansetron HCl [Zofran 4 mg Tablet] 1 - 2 tab PO Q6 PRN #15 tablet PRN Reason: Forms: Smoking Cessation Education, Return to Work Referrals: [facility] [Provider Group] - Follow up as needed ISIDRA RENEE MD [ACTIVE STAFF] - Follow up as needed IND[place]NA TOLENTINO MD [NO LOCAL MD] - Follow up as needed TEENA CEDENO MD [ACTIVE STAFF] - Follow up as needed
--- NOTE | 2019-04-14 17:15 | RADIOLOGY REPORT (SQ) ---
EXAM DESCRIPTION: CHEST 2 VIEWS COMPLETED DATE/TIME: 04/14/2019 5:07 pm REASON FOR STUDY: cough COMPARISON: 10/04/2018 EXAM PARAMETERS: NUMBER OF VIEWS: two views TECHNIQUE: Digital Frontal and Lateral radiographic views of the chest acquired. RADIATION DOSE: NA LIMITATIONS: none FINDINGS: LUNGS AND PLEURA: No opacities, masses or pneumothorax. No pleural effusion. MEDIASTINUM AND HILAR STRUCTURES: No masses or contour abnormalities. HEART AND VASCULAR STRUCTURES: Heart normal size. No evidence for failure. BONES: No acute findings. HARDWARE: None in the chest. OTHER: No other significant finding. IMPRESSION: NO ACUTE RADIOGRAPHIC FINDING IN THE CHEST. TECHNICAL DOCUMENTATION: JOB ID: [id number] [employer]- All Rights Reserved Reading location - IP/workstation name: [email or web address]
[2019-04-14 17:31] LABS: ABSOLUTE EOSINOPHILS # (AUTO) 0.1 10^3/uL (0.0-0.6); ABSOLUTE LYMPHOCYTES (AUTO) 2.1 10^3/uL (0.5-4.7); ABSOLUTE MONOCYTES (AUTO) 0.5 10^3/uL (0.1-1.4); ABSOLUTE NEUT (AUTO) 5.2 10^3/uL (1.7-8.2); BASOPHILS % (AUTO) 0.5 % (0-2); EOSINOPHILS % (AUTO) 1.2 % (0-6); HEMATOCRIT 48.9 % (37.9-51.0); HEMOGLOBIN 17.1 g/dL (13.5-17.0); LYMPHOCYTES % (AUTO) 26.2 % (13-45); MEAN CORPUSCULAR HEMOGLOBIN 31.4 pg (27.0-33.4); MEAN CORPUSCULAR HGB CONC 34.9 g/dL (32.0-36.0); MEAN CORPUSCULAR VOLUME 90 fl (80-97); MONOCYTES % (AUTO) 6.6 % (3-13); PLATELET COUNT 225 10^3/uL (150-450); RED BLOOD COUNT 5.44 10^6/uL (4.35-5.55); RED CELL DISTRIBUTION WIDTH 13.4 % (11.5-14.0); SEGMENTED NEUTROPHILS % (AUTO) 65.5 % (42-78); TOTAL CELLS COUNTED % (AUTO) 100 %
[2019-04-14 17:38] LABS: INTERNATIONAL RATION (INR) 1.06; PROTHROMBIN TIME 13.8 SEC (11.4-15.4)
[2019-04-14 17:44] LABS: ALBUMIN 5.2 g/dL (3.5-5.0); ALKALINE PHOSPHATASE 49 U/L (38-126); ANION GAP 12 (5-19); ASPARTATE AMINO TRANSFERASE 18 U/L (17-59); BILIRUBIN,DIRECT 0.1 mg/dL (0.0-0.4); BILIRUBIN,TOTAL 0.7 mg/dL (0.2-1.3); BLOOD UREA NITROGEN 9 mg/dL (7-20); CALCIUM 10.3 mg/dL (8.4-10.2); CARBON DIOXIDE 26 mmol/L (22-30); CHLORIDE 101 mmol/L (98-107); GLUCOSE 80 mg/dL (75-110); POTASSIUM 4.4 mmol/L (3.6-5.0); TOTAL PROTEIN 7.9 g/dL (6.3-8.2)
[2019-04-14 18:27] LABS: APPEARANCE,URINE CLEAR; BILIRUBIN,URINE NEGATIVE (NEGATIVE); COLOR,URINE YELLOW; GLUCOSE, URINE NEGATIVE (NEGATIVE); KETONES,URINE NEGATIVE (NEGATIVE); LEUKOCYTE ESTERASE,URINE NEGATIVE (NEGATIVE); NITRITE,URINE NEGATIVE (NEGATIVE); PROTEIN,URINE NEGATIVE (NEGATIVE); URINE SPECIFIC GRAVITY 1.011; UROBILINOGEN,URINE NEGATIVE mg/dL (<2.0)
--- NOTE | 2019-04-14 19:58 | RADIOLOGY REPORT (SQ) ---
EXAM DESCRIPTION: CT ABD/PELVIS WITH IV ORAL COMPLETED DATE/TIME: 04/14/2019 7:44 pm REASON FOR STUDY: L side abd pain COMPARISON: None. TECHNIQUE: CT scan of the abdomen and pelvis performed with intravenous and oral contrast using ventura johnson scanning technique with dynamic intravenous contrast injection. Images reviewed with lung, soft t issue, and bone windows. Reconstructed coronal and sagittal MPR images reviewed. Delayed images for e valuation of the urinary system also acquired. All images stored on PACS. All CT scanners at this facility use dose modulation, iterative reconstruction, and/or weight based d osing when appropriate to reduce radiation dose to as low as reasonably achievable (ALARA). [facility]: Dose Right [facility]: CareDose [facility]: Dose Right [facility]: Teradose 4D [facility]: GlamBox CONTRAST TYPE AND DOSE: contrast/concentration: Isovue 350.00 mg/ml; Total Contrast Delivered: 67.0 ml; Total Saline Delivered: 65.0 ml RENAL FUNCTION: None required. The patient is less than 50 years old. RADIATION DOSE: CT Rad equipment meets quality standard of care and radiation dose reduction techniq ues were employed. CTDIvol: 4.8 - 5.1 mGy. DLP: 499 mGy-cm. . LIMITATIONS: None. FINDINGS: LOWER CHEST: No significant findings. No nodules or infiltrates. LIVER: Normal size. No masses. No dilated ducts. SPLEEN: Normal size. No focal lesions. PANCREAS: No masses. No significant calcifications. No adjacent inflammation or peripancreatic fluid collections. Pancreatic duct not dilated. GALLBLADDER: No identified stones by CT criteria. No inflammatory changes to suggest cholecystitis. ADRENAL GLANDS: No significant masses or asymmetry. RIGHT KIDNEY AND URETER: No solid masses. No significant calcifications. No hydronephrosis or hyd roureter. LEFT KIDNEY AND URETER: No solid masses. No significant calcifications. No hydronephrosis or hydr oureter. AORTA AND VESSELS: No aneurysm. No dissection. Renal arteries, SMA, celiac without stenosis. RETROPERITONEUM: No retroperitoneal adenopathy, hemorrhage or masses. BOWEL AND PERITONEAL CAVITY: No obstruction. No visualized masses. No free fluid. No inflammatory ch anges or thickening of bowel wall. APPENDIX: Not visualized. PELVIS: No significant masses. Normal bladder. No free fluid. ABDOMINAL WALL: No masses. No hernias. BONES: No significant or acute findings. OTHER: No other significant finding. IMPRESSION: NO SIGNIFICANT OR ACUTE FINDINGS IN THE ABDOMEN OR PELVIS. TECHNICAL DOCUMENTATION: JOB ID: [id number] Quality ID # [id number]: Final reports with documentation of one or more dose reduction techniques (e.g., Au tomated exposure control, adjustment of the mA and/or kV according to patient size, use of iterative reconstruction technique) 2010 [employer]- All Rights Reserved Reading location - IP/workstation name: [email or web address]
[2019-04-14 21:22] VITALS: BP 112/68
== END 2019-04-14 21:26 | disposition home or self-care (01) ==
LOC: ER 16:27
DX: R10.32 Left lower quadrant pain (principal); R19.5 Other fecal abnormalities; R11.0 Nausea; F17.200 Nicotine dependence, unspecified, uncomplicated
CPT/HCPCS: 99284; 96361; 96374; 36415; 83690; 85025; 85610; 85730; 80053; 81001; 71046; 74177; J2405; J7030

== ENCOUNTER 2019-05-27 01:41 | Emergency (ER) | payer SELFPAY ==
[2019-05-27] MEDS ORDERED: KETOROLAC TROMETHAMINE 60 MG/2 ML SDV IM ONE (04:21)
[2019-05-27] MEDS ORDERED: MORPHINE SULFATE 10 MG/ML INJ IM ONE (04:21)
[2019-05-27 04:31] VITALS: BP 118/71
[2019-05-27] MEDS ORDERED: DEXAMETHASONE SOD PHOS INJ 10 MG/1 ML VIAL IM ONE (05:33)
--- NOTE | 2019-05-27 05:34 | ER Document Report ---
HPI - HPI Time Seen by Provider: 05/27/19 04:03 Pain Level: 5 Context: Patient is a 29-year-old male who presents to the emergency department with a chief complaint of back pain. Patient states that he has a pilonidal cyst, but has not followed up with surgery due to finances. Patient states that he backed up into a counter and hit the area where he has a pilonidal cyst and since then he is unable to sit or lay on his back. Patient also has sciatic nerve pain. Patient adamantly denies any history of IV drug abuse. Denies any fever, body aches, chills. Denies any new weakness. States that he has some tingling down his right leg, but states that this is normal for his sciatic nerve pain. - CONSTITUTIONAL Constitutional: DENIES: Fever, Chills - EENT EENT: DENIES: Sore Throat - NEURO Neurology: DENIES: Headache, Weakness, Vision blurred, Dizzinesss / Vertigo - RESPIRATORY Respiratory: DENIES: Trouble Breathing, Coughing - GASTROINTESTINAL Gastrointestinal: DENIES: Abdominal Pain, Nausea, Patient vomiting, Diarrhea - MUSCULOSKELETAL Musculoskeletal: REPORTS: Back Pain - Low back. DENIES: Extremity pain, Neck Pain, Swelling - DERM Skin Color: Normal Skin Problems: None Past Medical History - Social History Smoking Status: Current Every Day Smoker Family History: Reviewed & Not Pertinent Patient has suicidal ideation: No Patient has homicidal ideation: No Renal/ Medical History: Denies: Hx Peritoneal Dialysis GI Medical History: Reports: Hx Crohn's Disease - Immunizations Immunizations up to date: Yes Hx Diphtheria, Pertussis, Tetanus Vaccination: Yes Vertical Provider Document - CONSTITUTIONAL Agree With Documented VS: Yes Exam Limitations: No Limitations General Appearance: No Apparent Distress - INFECTION CONTROL TRAVEL OUTSIDE OF THE [place] IN LAST 30 DAYS: No - HEENT HEENT: Atraumatic, Normocephalic, PERRLA - RESPIRATORY Respiratory: Breath Sounds Normal, No Respiratory Distress - CARDIOVASCULAR Cardiovascular: Regular Rate, Regular Rhythm Pulses: Normal: Radial - GI/ABDOMEN Gastrointestinal: Abdomen Soft - MUSCULOSKELETAL/EXTREMETIES Musculoskeletal/Extremeties: FROM, Tender - Bilateral lower back and coccyx, at pilonidal cyst area - NEURO Level of Consciousness: Awake, Alert, Appropriate Motor/Sensory: No Motor Deficit, No Sensory Deficit - DERM Integumentary: Warm, Dry, No Rash Course - Re-evaluation Re-evalutation: Differential diagnosis for back pain includes muscle spasm, muscle strain, slipped disc cauda equina syndrome, vertebral fracture, vertebral tumor, epidural abscess, pyelonephritis, or AAA. Based on history and exam, the most likely etiology of the patient's back pain is sciatic nerve pain and pilonidal cyst pain. Emergent MRI is not indicated at this time because the patient does not have new weakness, or cauda equina syndrome. Patient does not have bladder or bowel dysfunction. Patient does not have history of IV drug use, therefore, I do not suspect an epidural abscess. Patient does not have recent weight loss or night sweats, and does not have a known history of cancer. 05/27/19 05:34 I have reevaluated the patient and he is now able to sit and stand. He received Toradol and morphine for pain relief. He is able to walk now. Patient will also be given a dose of Decadron here in the emergency department. He will follow[facility] with [facility] or [facility] in regards to this visit. I have also advised him to follow-up with surgery. Follow-up precautions were given. Verbal discharge instructions were given to the patient. They verbalized understanding. They are stable for discharge. - Vital Signs Vital signs: Temp Pulse Resp BP Pulse Ox 97.7 F 72 14 118/71 99 05/27/19 04:30 05/27/19 04:30 05/27/19 04:30 05/27/19 04:30 05/27/19 04:30 Discharge - Discharge Clinical Impression: Pilonidal cyst Back pain Qualifiers: Back pain location: low back pain Chronicity: unspecified Back pain laterality: bilateral Sciatica presence: with sciatica Sciatica laterality: bilateral sciatica Qualified Code(s): M54.42 - Lumbago with sciatica, left side Condition: Stable Disposition: HOME, SELF-CARE Instructions: Ice Packs ([facility]), Low Back Pain ([facility]), Warm Packs ([facility]) Additional Instructions: You were seen today in the emergency department for back pain. Your back pain is most consistent with sciatic nerve pain. You may take ibuprofen 600 mg and acetaminophen 1000 mg every 6 hours as needed for the pain. You may also buy [id number] Aspercreme with lidocaine and apply to the area per box instructions. If you develop a fever greater than 100.4 F, lose bowel or bladder function, are unable to walk, or have any symptoms that are worrisome to you, please return to the emergency department. You also have your pilonidal cyst, which ultimately will not be fixed until you see a surgeon. Please follow-up with the surgeon below in regards to this visit. Forms: Return to Work Referrals: SHEMAR GUIDRY MD [ACTIVE STAFF] - Follow up in 3-5 days [facility] [Provider Group] - Follow up as needed [facility] [Provider Group] - Follow up as needed
== END 2019-05-27 06:00 | disposition home or self-care (01) ==
LOC: ER 01:41
DX: L05.91 Pilonidal cyst without abscess (principal); M54.42 Lumbago with sciatica, left side; M54.9 Dorsalgia, unspecified; F17.200 Nicotine dependence, unspecified, uncomplicated
CPT/HCPCS: 99283; 96374; 96375; J1885; J2270; J1100

== ENCOUNTER 2019-07-26 18:01 | Emergency (ER) | payer SELFPAY ==
[2019-07-26] MEDS ORDERED: IBUPROFEN 600 MG TABLET PO ONE (19:51)
[2019-07-26] MEDS ORDERED: ACETAMINOPHEN 325 MG TABLET PO ONE (19:51)
[2019-07-26] MEDS ORDERED: IPRATROPIUM/ALBUTEROL 0.5-2.5 MG/3 ML AMPUL NEB ONE (19:52)
--- NOTE | 2019-07-26 19:54 | ER Document Report ---
ED Medical Screen (RME) - General Chief Complaint: Flu Symptoms Stated Complaint: FEVER,BREATHING TROUBLES Time Seen by Provider: 07/26/19 19:47 Notes: Patient is a 29-year-old male who presents to the emergency department with a chief complaint of shortness of breath, difficulty breathing, and a fever. Patient states that his fever started this morning. He has had a cough for the past few days. He is an everyday smoker. Exam: Expiratory wheezes noted in the left lower lobe. Coarse breath sounds also noted. I have greeted and performed a rapid initial assessment of this patient. A comprehensive ED assessment and evaluation of the patient, analysis of test results and completion of medical decision making process will be conducted by an additional ED providers. TRAVEL OUTSIDE OF THE [place] IN LAST 30 DAYS: No - Related Data Allergies/Adverse Reactions: amoxicillin Allergy (Verified 04/24/18 17:14) Penicillins Allergy (Verified 04/24/18 17:14) Past Medical History Renal/ Medical History: Denies: Hx Peritoneal Dialysis GI Medical History: Reports: Hx Crohn's Disease - Immunizations Immunizations up to date: Yes Hx Diphtheria, Pertussis, Tetanus Vaccination: Yes Physical Exam - Vital signs Vitals: Temp Pulse Resp BP Pulse Ox 100.3 F 109 H 18 130/80 H 98 07/26/19 18:16 07/26/19 18:16 07/26/19 18:16 07/26/19 18:16 07/26/19 18:16 Course - Vital Signs Vital signs: Temp Pulse Resp BP Pulse Ox 100.3 F 109 H 18 130/80 H 98 07/26/19 18:16 07/26/19 18:16 07/26/19 18:16 07/26/19 18:16 07/26/19 18:16
[2019-07-26 20:24] LABS: ABSOLUTE LYMPHOCYTES (AUTO) 0.7 10^3/uL (0.5-4.7); ABSOLUTE MONOCYTES (AUTO) 0.5 10^3/uL (0.1-1.4); ABSOLUTE NEUT (AUTO) 3.6 10^3/uL (1.7-8.2); BASOPHILS % (AUTO) 0.4 % (0-2); HEMATOCRIT 47.8 % (37.9-51.0); HEMOGLOBIN 16.9 g/dL (13.5-17.0); LYMPHOCYTES % (AUTO) 14.5 % (13-45); MEAN CORPUSCULAR HEMOGLOBIN 31.5 pg (27.0-33.4); MEAN CORPUSCULAR HGB CONC 35.3 g/dL (32.0-36.0); MEAN CORPUSCULAR VOLUME 89 fl (80-97); MONOCYTES % (AUTO) 9.9 % (3-13); PLATELET COUNT 139 10^3/uL (150-450); RED BLOOD COUNT 5.37 10^6/uL (4.35-5.55); RED CELL DISTRIBUTION WIDTH 12.4 % (11.5-14.0); SEGMENTED NEUTROPHILS % (AUTO) 75.2 % (42-78); TOTAL CELLS COUNTED % (AUTO) 100 %; WHITE BLOOD COUNT 4.8 10^3/uL (4.0-10.5)
[2019-07-26 20:39] LABS: ALBUMIN 4.7 g/dL (3.5-5.0); ALKALINE PHOSPHATASE 53 U/L (38-126); ANION GAP 14 (5-19); ASPARTATE AMINO TRANSFERASE 21 U/L (17-59); BILIRUBIN,DIRECT 0.2 mg/dL (0.0-0.4); BILIRUBIN,TOTAL 0.5 mg/dL (0.2-1.3); BLOOD UREA NITROGEN 8 mg/dL (7-20); CALCIUM 9.5 mg/dL (8.4-10.2); CARBON DIOXIDE 21 mmol/L (22-30); CHLORIDE 100 mmol/L (98-107); GLUCOSE 90 mg/dL (75-110); POTASSIUM 3.9 mmol/L (3.6-5.0); TOTAL PROTEIN 7.5 g/dL (6.3-8.2)
[2019-07-26 21:46] LABS: A TYPE INFLUENZA AG NEGATIVE (NEGATIVE); B INFLUENZA AG POSITIVE (NEGATIVE)
--- NOTE | 2019-07-26 21:51 | RADIOLOGY REPORT (SQ) ---
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 COMPARISON: 04/14/2019 FINDINGS: Normal heart size without pulmonary edema. The lungs are clear. No pleural effusions or pneumothorax. No acute bony findings are seen. IMPRESSION: No evidence of acute cardiopulmonary disease.
--- NOTE | 2019-07-27 00:05 | ER Document Report ---
ED Fever - General Chief Complaint: Flu Symptoms Stated Complaint: FEVER,BREATHING TROUBLES Time Seen by Provider: 07/26/19 19:47 Mode of Arrival: Ambulatory Information source: Patient TRAVEL OUTSIDE OF THE [place] IN LAST 30 DAYS: No - HPI Notes: Patient reports approximately 3 days of fever and congestion. He is also had chills and malaise. Patient states yesterday he had right-sided chest pain that was worse with movement and better with rest. The pain was intermittent. He states it was moderate. It is better today. It did not have any significant radiation. It was sharp. He has had a mostly nonproductive cough. - Related Data Allergies/Adverse Reactions: amoxicillin Allergy (Verified 04/24/18 17:14) Penicillins Allergy (Verified 04/24/18 17:14) Past Medical History - General Information source: Patient - Social History Smoking Status: Current Every Day Smoker Frequency of alcohol use: None Drug Abuse: None Family History: Reviewed & Not Pertinent Patient has suicidal ideation: No Patient has homicidal ideation: No Neurological Medical History: Reports: Hx Seizures Renal/ Medical History: Reports: Hx Kidney Stones. Denies: Hx Peritoneal Dialysis GI Medical History: Reports: Hx Crohn's Disease - Immunizations Immunizations up to date: Yes Hx Diphtheria, Pertussis, Tetanus Vaccination: Yes Review of Systems - Review of Systems Constitutional: Chills, Fever, Malaise Cardiovascular: Chest pain. denies: Palpitations Respiratory: Cough, Short of breath -: Yes All other systems reviewed and negative Physical Exam - Vital signs Vitals: Temp Pulse Resp BP Pulse Ox 100.3 F 109 H 18 130/80 H 98 07/26/19 18:16 07/26/19 18:16 07/26/19 18:16 07/26/19 18:16 07/26/19 18:16 Interpretation: Tachycardic - General General appearance: Appears well, Alert In distress: None - HEENT Head: Normocephalic, Atraumatic Eyes: Normal Pupils: PERRL - Respiratory Respiratory status: No respiratory distress Chest status: Nontender Breath sounds: Normal Chest palpation: Normal - Cardiovascular Rhythm: Regular Heart sounds: Normal auscultation Murmur: No - Abdominal Inspection: Normal Distension: No distension Bowel sounds: Normal Tenderness: Nontender Organomegaly: No organomegaly - Back Back: Normal, Nontender - Extremities General upper extremity: Normal inspection, Nontender, Normal color, Normal ROM, Normal temperature General lower extremity: Normal inspection, Nontender, Normal color, Normal ROM, Normal temperature, Normal weight bearing. No: Ginny's sign - Neurological Neuro grossly intact: Yes Cognition: Normal Orientation: AAOx4 Felice Coma Scale Eye Opening: Spontaneous [place] Coma Scale Verbal: Oriented [place] Coma Scale Motor: Obeys Commands [place] Coma Scale Total: 15 Speech: Normal Motor strength normal: LUE, RUE, LLE, RLE Sensory: Normal - Psychological Associated symptoms: Normal affect, Normal mood - Skin Skin Temperature: Warm Skin Moisture: Dry Skin Color: Normal Course - Re-evaluation Re-evalutation: 07/27/19 00:03 Patient has symptoms consistent with flu and is positive for the flu. On my current exam he is no longer tachycardic and was sleeping comfortably in the bed. I will give the patient some pain medicine as well as a work note. I have educated the patient about the pros and cons of Tamiflu. - Vital Signs Vital signs: Temp Pulse Resp BP Pulse Ox 100.3 F 109 H 18 130/80 H 98 07/26/19 18:16 07/26/19 18:16 07/26/19 18:16 07/26/19 18:16 07/26/19 18:16 - Laboratory Result Diagrams: 07/26/19 20:07 07/26/19 20:07 Laboratory results interpreted by me: 07/26/19 07/26/19 20:07 20:07 Plt Count 139 L Sodium 134.8 L Carbon Dioxide 21 L - Diagnostic Test Radiology reviewed: Image reviewed, Reports reviewed Discharge - Discharge Clinical Impression: Influenza Condition: Stable Disposition: HOME, SELF-CARE Instructions: Influenza ([facility]) [id number], Fever ([facility]), Oral Narcotic Medication ([facility]) Prescriptions: Hydrocodone/Acetaminophen [[place] 5-325 mg Tablet] 1 tab PO Q6 PRN 3 Days #12 tablet PRN Reason: Oseltamivir Phosphate [Tamiflu 75 mg Capsule] 75 mg PO BID 5 Days #10 capsule Forms: Return to Work
[2019-07-27 00:07] VITALS: BP 119/60
== END 2019-07-27 00:44 | disposition home or self-care (01) ==
LOC: ER 18:01
DX: J11.1 Influenza due to unidentified influenza virus with other respiratory manifestations (principal); R50.9 Fever, unspecified; R53.81 Other malaise; R05 Cough; F17.200 Nicotine dependence, unspecified, uncomplicated
CPT/HCPCS: 94640; 99283; 36415; 85025; 80053; 87804; 71046; J7620

== ENCOUNTER 2020-01-25 12:50 | Emergency (ER) | payer SELFPAY ==
--- NOTE | 2020-01-25 13:46 | ER Document Report ---
ED Medical Screen (RME) - General Chief Complaint: Abdominal Pain Stated Complaint: ABDOMINAL PAIN Time Seen by Provider: 01/25/20 13:41 Notes: HPI: 29-year-old male with Crohn's history presenting with 3 to 4 weeks of progressively worsening upper abdominal pain. Some nausea no vomiting no fever always has loose stools. States he feels like the discomfort seems to radiate up into the chest at times. Does not specifically change with eating or drinking. Does not remember his last Crohn's flare. Does not follow with anyone for Crohn's disease. PHYSICAL EXAMINATION: Moderate tenderness across the upper abdomen on palpation no lower abdominal pain on palpation, no tenderness on palpation of the chest wall lung sounds are clear to auscultation regular rate and rhythm I have greeted and performed a rapid initial assessment of this patient. A comprehensive ED assessment and evaluation of the patient, analysis of test results and completion of medical decision making process will be conducted by an additional ED providers. TRAVEL OUTSIDE OF THE [place] IN LAST 30 DAYS: No - Related Data Allergies/Adverse Reactions: amoxicillin Allergy (Verified 01/25/20 13:39) Penicillins Allergy (Verified 01/25/20 13:39) Past Medical History - Social History Chew tobacco use (# tins/day): No Frequency of alcohol use: Occasional Drug Abuse: None Neurological Medical History: Reports: Hx Seizures Renal/ Medical History: Reports: Hx Kidney Stones. Denies: Hx Peritoneal Dialysis GI Medical History: Reports: Hx Crohn's Disease - Immunizations Immunizations up to date: Yes Hx Diphtheria, Pertussis, Tetanus Vaccination: Yes Physical Exam - Vital signs Vitals: Temp Pulse Resp BP Pulse Ox 97.8 F 69 20 111/76 98 01/25/20 12:56 01/25/20 12:56 01/25/20 12:56 01/25/20 12:56 01/25/20 12:56 Course - Vital Signs Vital signs: Temp Pulse Resp BP Pulse Ox 97.8 F 69 20 111/76 98 01/25/20 13:40 01/25/20 12:56 01/25/20 12:56 01/25/20 12:56 01/25/20 12:56
[2020-01-25 14:14] LABS: APPEARANCE,URINE CLEAR; BILIRUBIN,URINE NEGATIVE (NEGATIVE); COLOR,URINE YELLOW; GLUCOSE, URINE NEGATIVE (NEGATIVE); KETONES,URINE NEGATIVE (NEGATIVE); LEUKOCYTE ESTERASE,URINE NEGATIVE (NEGATIVE); NITRITE,URINE NEGATIVE (NEGATIVE); PROTEIN,URINE NEGATIVE (NEGATIVE); URINE SPECIFIC GRAVITY 1.019; UROBILINOGEN,URINE NEGATIVE mg/dL (<2.0)
[2020-01-25 14:55] LABS: ABSOLUTE EOSINOPHILS # (AUTO) 0.3 10^3/uL (0.0-0.6); ABSOLUTE LYMPHOCYTES (AUTO) 1.7 10^3/uL (0.5-4.7); ABSOLUTE MONOCYTES (AUTO) 0.4 10^3/uL (0.1-1.4); ABSOLUTE NEUT (AUTO) 2.1 10^3/uL (1.7-8.2); BASOPHILS % (AUTO) 0.8 % (0-2); EOSINOPHILS % (AUTO) 5.8 % (0-6); HEMATOCRIT 46.9 % (37.9-51.0); HEMOGLOBIN 16.2 g/dL (13.5-17.0); MEAN CORPUSCULAR HEMOGLOBIN 31.4 pg (27.0-33.4); MEAN CORPUSCULAR HGB CONC 34.6 g/dL (32.0-36.0); MEAN CORPUSCULAR VOLUME 91 fl (80-97); MONOCYTES % (AUTO) 8.1 % (3-13); PLATELET COUNT 214 10^3/uL (150-450); RED BLOOD COUNT 5.17 10^6/uL (4.35-5.55); SEGMENTED NEUTROPHILS % (AUTO) 47.3 % (42-78); TOTAL CELLS COUNTED % (AUTO) 100 %; WHITE BLOOD COUNT 4.5 10^3/uL (4.0-10.5)
[2020-01-25 15:13] LABS: ALBUMIN 4.5 g/dL (3.5-5.0); ALKALINE PHOSPHATASE 46 U/L (38-126); ANION GAP 7 (5-19); ASPARTATE AMINO TRANSFERASE 19 U/L (17-59); BILIRUBIN,TOTAL 0.5 mg/dL (0.2-1.3); BLOOD UREA NITROGEN 11 mg/dL (7-20); CARBON DIOXIDE 25 mmol/L (22-30); CHLORIDE 103 mmol/L (98-107); GLUCOSE 95 mg/dL (75-110); POTASSIUM 4.2 mmol/L (3.6-5.0)
[2020-01-25] MEDS ORDERED: MORPHINE SULFATE 10 MG/ML INJ IV ONE (15:19)
[2020-01-25] MEDS ORDERED: ONDANSETRON HCL INJ/PF 4 MG/2 ML SDV IV ONE (15:19)
--- NOTE | 2020-01-25 15:19 | ER Document Report ---
ED GI/ - General Chief Complaint: Abdominal Pain Stated Complaint: ABDOMINAL PAIN Time Seen by Provider: 01/25/20 13:41 Notes: CHIEF COMPLAINT:abdominal pain HPI:29-year-old male with Crohn's history presenting with 3 to 4 weeks of progressively worsening upper abdominal pain. Some nausea no vomiting no fever always has loose stools. States he feels like the discomfort seems to radiate up into the chest at times. Does not specifically change with eating or drinking. Does not remember his last Crohn's flare. Does not follow with an yone for Crohn's disease. ROS: See HPI - all other systems were reviewed and are otherwise negative Constitutional: no fever Eyes: no drainage, no blurred vision ENT: no runny nose, no sore throat Cardiovascular: no chest pain Resp: no SOB, no cough GI: no vomiting, + diarrhea, + abdominal pain : no dysuria Integumentary: no rash Allergy: no hives Musculoskeletal: no extremity pain or swelling Neurological: no numbness/tingling, no weakness MEDICATIONS: I agree with the patient medications as charted by the RN. ALLERGIES: I agree with the allergies as charted by the RN. PAST MEDICAL HISTORY/PAST SURGICAL HISTORY: Reviewed and agree as charted by RN. SOCIAL HISTORY: Reviewed and agree as charted by RN. FAMILY HISTORY: No significant familial comorbid conditions directly related to patient complaint EXAM: Reviewed vital signs as charted by RN. CONSTITUTIONAL: Alert and oriented and responds appropriately to questions. Well-appearing; well-nourished HEAD: Normocephalic; atraumatic EYES: PERRL; Conjunctivae clear, sclerae non-icteric ENT: normal nose; no rhinorrhea; moist mucous membranes; pharynx without lesions noted, no uvula edema or deviation, no tonsillar hypertrophy, phonation normal NECK: Supple without meningismus; non-tender; no cervical lymphadenopathy, no m asses CARD: RRR; no murmurs, no clicks, no rubs, no gallops; symmetric distal pulses RESP: Normal chest excursion without splinting or tachypnea; breath sounds clear and equal bilaterally; no wheezes, no rhonchi, no rales, pulse oximetry 98% on room air not hypoxic ABD/GI: Normal bowel sounds; non-distended; soft, mild tenderness across the upper abdomen on palpation bilateral and epigastric, no rebound, no guarding; no palpable organomegaly or masses. BACK: The back appears normal and is non-tender to palpation, there is no CVA tenderness EXT: Normal ROM in all joints; non-tender to palpation; no cyanosis, no effusions, no edema SKIN: Normal color for age and race; warm; dry; good turgor; no acute lesions noted NEURO: Moves all extremities equally; Motor and sensory function intact PSYCH: The patient's mood and manner are appropriate. Grooming and personal hygiene are appropriate. MDM: 29-year-old male with several week history of upper abdominal pain with Crohn's history. Will obtain CT imaging to evaluate for colitis. TRAVEL OUTSIDE OF THE [place] IN LAST 30 DAYS: No - Related Data Allergies/Adverse Reactions: amoxicillin Allergy (Verified 01/25/20 13:39) Penicillins Allergy (Verified 01/25/20 13:39) Past Medical History - Social History Smoking Status: Current Every Day Smoker Chew tobacco use (# tins/day): No Frequency of alcohol use: Occasional Drug Abuse: None Family History: Reviewed & Not Pertinent Patient has homicidal ideation: No Neurological Medical History: Reports: Hx Seizures Renal/ Medical History: Reports: Hx Kidney Stones. Denies: Hx Peritoneal Dialysis GI Medical History: Reports: Hx Crohn's Disease - Immunizations Immunizations up to date: Yes Hx Diphtheria, Pertussis, Tetanus Vaccination: Yes Physical Exam - Vital signs Vitals: Temp Pulse Resp BP Pulse Ox 97.8 F 69 20 111/76 98 01/25/20 12:56 01/25/20 12:56 01/25/20 12:56 01/25/20 12:56 01/25/20 12:56 Course - Re-evaluation Re-evalutation: 01/25/20 17:53 CT imaging does not show acute emergent abnormalities. Lab work does not show acute emergent abnormalities. This may be simple gastritis, gastric ulcer. Discussed at length with the patient. Will discharge home with GI follow-up - Vital Signs Vital signs: Temp Pulse Resp BP Pulse Ox 97.8 F 69 20 111/76 98 01/25/20 13:40 01/25/20 12:56 01/25/20 12:56 01/25/20 12:56 01/25/20 12:56 - Laboratory Result Diagrams: 01/25/20 14:39 01/25/20 14:39 Laboratory results interpreted by me: 01/25/20 01/25/20 13:55 14:39 Sodium 135.2 L Urine Ascorbic Acid 40 H Discharge - Discharge Clinical Impression: Abdominal pain, bilateral upper quadrant Condition: Stable Disposition: HOME, SELF-CARE Additional Instructions: Your lab work and CT imaging today did not show definitive cause for your abdominal pain. Take the Protonix as prescribed. Low-fat low spice diet. Take Bentyl for abdominal pain or spasm. Follow-up closely with gastroenterology for further evaluation and treatment call for appointment Prescriptions: Dicyclomine HCl [Bentyl 20 mg Tablet] 20 mg PO Q6H PRN #20 tablet PRN Reason: Pantoprazole Sodium [Protonix [address] Tablet] 20 mg PO DAILY #30 tablet.dr Forms: Return to Work Referrals: ISIDRA RENEE MD [ACTIVE STAFF] - Follow up as needed
--- NOTE | 2020-01-25 17:30 | RADIOLOGY REPORT (SQ) ---
EXAM DESCRIPTION: CT ABD/PELVIS WITH IV ORAL IMAGES COMPLETED DATE/TIME: 01/25/2020 5:15 pm REASON FOR STUDY: upper abd pain/crohns history COMPARISON: 04/14/2019 TECHNIQUE: CT scan of the abdomen and pelvis performed using helical scanning technique with dynamic intravenous contrast injection. No oral contrast. Images reviewed with lung, soft tissue, and bone windows. Reconstructed coronal and sagittal MPR images reviewed. Delayed images for evaluation of the urinary system also acquired. All images stored on PACS. All CT scanners at this facility use dose modulation, iterative reconstruction, and/or weight based d osing when appropriate to reduce radiation dose to as low as reasonably achievable (ALARA). [facility]: Dose Right [facility]: CareDose [facility]: Dose Right [facility]: Teradose 4D [facility]: [employer] CONTRAST TYPE AND DOSE: contrast/concentration: Isovue 350.00 mmol/ml; Total Contrast Delivered: 67. 0 ml; Total Saline Delivered: 65.0 ml RENAL FUNCTION: None required. The patient is less than 50 years old. RADIATION DOSE: CT Rad equipment meets quality standard of care and radiation dose reduction techniq ues were employed. CTDIvol: NaN - NaN mGy. DLP: 0 mGy-cm.. LIMITATIONS: None. FINDINGS: LOWER CHEST: No significant findings. No nodules or infiltrates. LIVER: There is borderline hepatomegaly present with the liver measuring 18.8 cm. The liver is also somewhat hypoattenuating appearance compared to the spleen. SPLEEN: Normal size. No focal lesions. PANCREAS: No masses. No significant calcifications. No adjacent inflammation or peripancreatic fluid collections. Pancreatic duct not dilated. GALLBLADDER: No identified stones by CT criteria. No inflammatory changes to suggest cholecystitis. ADRENAL GLANDS: No significant masses or asymmetry. RIGHT KIDNEY AND URETER: No solid masses. No significant calcifications. No hydronephrosis or hyd roureter. LEFT KIDNEY AND URETER: No solid masses. No significant calcifications. No hydronephrosis or hydr oureter. AORTA AND VESSELS: No aneurysm. No dissection. Renal arteries, SMA, celiac without stenosis. RETROPERITONEUM: No retroperitoneal adenopathy, hemorrhage or masses. BOWEL AND PERITONEAL CAVITY: No masses or inflammatory changes. No free fluid or peritoneal masses. APPENDIX: Normal. PELVIS: No mass. No free fluid. Normal bladder. ABDOMINAL WALL: No masses. No hernias. BONES: No significant or acute findings. OTHER: No other significant finding. IMPRESSION: 1. No evidence of an acute intra-abdominal process 2. Borderline hepatomegaly and possible hepatic steatosis TECHNICAL DOCUMENTATION: JOB ID: [id number] Quality ID # [id number]: Final reports with documentation of one or more dose reduction techniques (e.g., Au tomated exposure control, adjustment of the mA and/or kV according to patient size, use of iterative reconstruction technique) 2010 [employer]- All Rights Reserved Reading location - IP/workstation name: [email or web address]
[2020-01-25 18:31] VITALS: BP 112/64
== END 2020-01-25 18:29 | disposition home or self-care (01) ==
LOC: ER 12:50
DX: R10.11 Right upper quadrant pain (principal); R10.12 Left upper quadrant pain; R10.811 Right upper quadrant abdominal tenderness; R10.812 Left upper quadrant abdominal tenderness; R10.816 Epigastric abdominal tenderness; R11.0 Nausea; R19.7 Diarrhea, unspecified; F17.200 Nicotine dependence, unspecified, uncomplicated; Z88.0 Allergy status to penicillin
CPT/HCPCS: 99284; 96374; 96375; 36415; 83690; 85025; 80053; 81001; 74177; J2270; J2405

== ENCOUNTER 2020-03-01 04:06 | Emergency (ER) | payer SELFPAY ==
[2020-03-01] MEDS ORDERED: DIPHENHYDRAMINE HCL 50 MG/ML VIAL IV ONE (04:24)
[2020-03-01] MEDS ORDERED: LORAZEPAM INJ 2 MG/1 ML VIAL IV ONE (04:24)
--- NOTE | 2020-03-01 04:50 | ER Document Report ---
Entered by ROSANNA RAMOS SCRIBE 03/01/20 0427 Acting as scribe for:JENNIFFER CAMPOS IV, MD ED Psych Disorder / Suicide - General Chief Complaint: Psych Problem Stated Complaint: DRUG ABUSE/PSYCH Time Seen by Provider: 03/01/20 04:15 Mode of Arrival: Ambulatory Information source: Patient Notes: This 29 year old male patient presents to the ED today for evaluation after taking LSD prior to arrival. Patient admits to homicidal ideation and reports that he came to the ED because he thought it was the best place for him, stating "if something were to happen, I can be restrained." He states "I just want to go to sleep" and that he doesn't remember the last time he slept. He also complains of being really cold. No other complaints at this time. TRAVEL OUTSIDE OF THE [place] IN LAST 30 DAYS: No - Related Data Allergies/Adverse Reactions: amoxicillin Allergy (Verified 01/25/20 13:39) Penicillins Allergy (Verified 01/25/20 13:39) Past Medical History - General Information source: Patient, [facility] Records - Social History Smoking Status: Unknown if Ever Smoked Smoking Education Provided: No Drug Abuse: Other - LSD Family History: Reviewed & Not Pertinent Patient has homicidal ideation: Yes Neurological Medical History: Reports: Hx Seizures Renal/ Medical History: Reports: Hx Kidney Stones GI Medical History: Reports: Hx Crohn's Disease - Immunizations Immunizations up to date: Yes Hx Diphtheria, Pertussis, Tetanus Vaccination: Yes Review of Systems - Review of Systems Constitutional: See HPI EENT: No symptoms reported Cardiovascular: No symptoms reported Respiratory: No symptoms reported Gastrointestinal: No symptoms reported Genitourinary: No symptoms reported Musculoskeletal: No symptoms reported Skin: No symptoms reported Hematologic/Lymphatic: No symptoms reported Neurological/Psychological: See HPI, Homicidal ideation -: Yes All other systems reviewed and negative Physical Exam - Vital signs Vitals: Temp Pulse Resp BP Pulse Ox 97.8 F 84 20 124/44 L 98 03/01/20 04:34 03/01/20 04:34 03/01/20 04:34 03/01/20 04:34 03/01/20 04:34 - General General appearance: Alert, Other - Tremulous - HEENT Head: Normocephalic, Atraumatic Eyes: Normal - Respiratory Respiratory status: No respiratory distress Chest status: Nontender Breath sounds: Normal Chest palpation: Normal - Cardiovascular Rhythm: Regular, Tachycardia Heart sounds: Normal auscultation Murmur: No Friction rub: No Gallop: None auscultated - Abdominal Inspection: Normal Distension: No distension Bowel sounds: Normal Tenderness: Nontender - Abdomen soft Organomegaly: No organomegaly - Back Back: Normal, Nontender - Extremities General upper extremity: Normal inspection General lower extremity: Normal inspection - Neurological Neuro grossly intact: Yes - Psychological Associated symptoms: Other - Admits to DC, rapid speech - Skin Skin Temperature: Warm Skin Moisture: Dry Skin Color: Normal Course - Vital Signs Vital signs: Temp Pulse Resp BP Pulse Ox 97.8 F 84 20 124/44 L 98 03/01/20 04:34 03/01/20 04:34 03/01/20 04:34 03/01/20 04:34 03/01/20 04:34 - Laboratory Result Diagrams: 03/01/20 04:49 03/01/20 04:49 Laboratory results interpreted by me: 03/01/20 04:49 WBC 12.1 H Absolute Neuts (auto) 9.5 H Seg Neutrophils % 78.2 H - EKG Interpretation by Me Additional EKG results interpreted by me: 03/01/20 06:40 EKG obtained on 03/01/2020 at 0456 hrs. was interpreted by this MD. Findings: Normal sinus rhythm, rate 74, normal axis, P waves proceed QRS complexes, QRS complexes appear narrow, there are no obvious patterns of ST segment elevation or depression present to suggest acute myocardial ischemia or infarction. Impression: Normal sinus rhythm with nonspecific ST segments. Discharge - Discharge Clinical Impression: Homicidal ideation, Involuntary commitment, LSD reaction Condition: Stable Disposition: OTHER I personally performed the services described in the documentation, reviewed and edited the documentation which was dictated to the scribe in my presence, and it accurately records my words and actions.
[2020-03-01 04:59] LABS: ABSOLUTE BASOPHILS # (AUTO) 0.1 10^3/uL (0.0-0.2); ABSOLUTE EOSINOPHILS # (AUTO) 0.1 10^3/uL (0.0-0.6); ABSOLUTE LYMPHOCYTES (AUTO) 1.9 10^3/uL (0.5-4.7); ABSOLUTE MONOCYTES (AUTO) 0.6 10^3/uL (0.1-1.4); ABSOLUTE NEUT (AUTO) 9.5 10^3/uL (1.7-8.2); BASOPHILS % (AUTO) 0.5 % (0-2); EOSINOPHILS % (AUTO) 0.9 % (0-6); HEMOGLOBIN 15.6 g/dL (13.5-17.0); LYMPHOCYTES % (AUTO) 15.4 % (13-45); MEAN CORPUSCULAR HEMOGLOBIN 31.9 pg (27.0-33.4); MEAN CORPUSCULAR HGB CONC 34.7 g/dL (32.0-36.0); MEAN CORPUSCULAR VOLUME 92 fl (80-97); PLATELET COUNT 241 10^3/uL (150-450); RED CELL DISTRIBUTION WIDTH 13.1 % (11.5-14.0); SEGMENTED NEUTROPHILS % (AUTO) 78.2 % (42-78); TOTAL CELLS COUNTED % (AUTO) 100 %; WHITE BLOOD COUNT 12.1 10^3/uL (4.0-10.5)
--- NOTE | 2020-03-01 06:37 | EKG REPORT ---
SEVERITY:- BORDERLINE ECG - SINUS RHYTHM BORDERLINE T ABNORMALITIES, ANT-LAT LEADS : Confirmed by: Jerrell Curran MD 01-Mar-2020 06:36:40
[2020-03-01 09:14] LABS: APPEARANCE,URINE CLEAR; BILIRUBIN,URINE NEGATIVE (NEGATIVE); COLOR,URINE YELLOW; GLUCOSE, URINE NEGATIVE (NEGATIVE); KETONES,URINE NEGATIVE (NEGATIVE); LEUKOCYTE ESTERASE,URINE NEGATIVE (NEGATIVE); NITRITE,URINE NEGATIVE (NEGATIVE); PROTEIN,URINE NEGATIVE (NEGATIVE); URINE SPECIFIC GRAVITY 1.008; UROBILINOGEN,URINE NEGATIVE mg/dL (<2.0)
[2020-03-01 09:34] LABS: URINE AMPHETAMINES SCREEN NEGATIVE; URINE BARBITURATES SCREEN NEGATIVE; URINE BENZODIAZEPINES SCREEN NEGATIVE; URINE COCAINE SCREEN NEGATIVE; URINE MARIJUANA (THC) SCREEN UNCONFIRMED POSITIVE; URINE METHADONE SCREEN NEGATIVE; URINE PHENCYCLIDINE SCREEN NEGATIVE
[2020-03-01 09:53] LABS: ALBUMIN 4.2 g/dL (3.5-5.0); ALKALINE PHOSPHATASE 50 U/L (38-126); ANION GAP 7 (5-19); ASPARTATE AMINO TRANSFERASE 19 U/L (17-59); BLOOD UREA NITROGEN 14 mg/dL (7-20); CALCIUM 9.1 mg/dL (8.4-10.2); CARBON DIOXIDE 25 mmol/L (22-30); CHLORIDE 104 mmol/L (98-107); GLUCOSE 93 mg/dL (75-110); POTASSIUM 3.8 mmol/L (3.6-5.0); TOTAL PROTEIN 6.5 g/dL (6.3-8.2)
[2020-03-01 09:57] LABS: ACETAMINOPHEN < 10 ug/mL (10-30); ALCOHOL < 10 mg/dL (NONE DETECTED); SALICYLATE < 1.0 mg/dL (2.0-20.0)
--- NOTE | 2020-03-01 13:55 | ER Document Report ---
Doctor's Note Notes: 03/01/20 14:07 Patient evaluated at this time. Patient's girlfriend is at the bedside, they both feel comfortable with him going home. He does not have any suicidal or homicidal ideations. He agrees to stop using LSD.
[2020-03-01 14:07] VITALS: BP 120/73
--- NOTE | 2020-03-02 09:30 | PSYCHOLOGICAL NOTE ---
Psych Note - Psych Note Date seen by psych provider: 03/01/20 Time seen by psych provider: 11:21 - Evaluation with patient from [id number]. Girlfriend collateral at 1315. Psych Note: Patient is a 29 year old male who presented to the ED last evening via POV/roommate for taking LSD, having a bad trip and having thoughts of wanting to harm other so just wants to be put to sleep. He was subsequently put on a 24 Hour Petition for Evaluation. Patient reported he took one hit of acid around midnight. He stated this was his first time taking acid and when asked if he did it alone or with people he said I was basically alone. He denied current homicidal ideation. He denied previous MH history or treatment to include hospitalizations. He reported a seizure history, last one was several months ago, and not currently on medication for it. Psych educated patient about increasing chance of seizure using LSD or other drugs. He said he already knew and understood. He stated he felt better. He commented I got scared and asked my roommate to bring me here, he didnt want to but did anyways. He noted his roommate is [employer] and girlfriend is Huang, either could be used in plan of care. Patient was alert and oriented to self, person, place, time and situation. Mood was euthymic with congruent affect. He denied current suicidal and homicidal ideation. Patient did not appear to be responding to internal stimuli as evidenced by fair eye contact and answering questions appropriately when addressed. Thought processes were linear and organized. Conversational speech was within normal limits for rate, tone and prosody. Intellectual abilities are estimated to be average. Insight, judgment and impulse control were fair as evidenced by recognizing he was having a bad trip and coming to the hospital. Obtained collateral from patients girlfriend Huang ([phone]) at 1315. She stated what patient said was consistent from what she was told about what happened. She denied patient having any suicidal or homicidal statements or gestures previously. She was aware of LSD increasing chance of seizure especially since patient has a history of seizures. She said she could provide transportation, said they reside at the [address], and said good when informed patient would have MH and SA resources. Tried calling [facility] at 1321. Their phone number and fax have been busy all morning. Was going to make an initial appointment. Instead provided walk in times for Port and IFS. 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 Recommendation to [facility] 24 Hour Petition for Evaluation. He denied current homicidal and suicidal ideation. He was no longer under the direct influences of LSD. He had time to sleep. Girlfriend provided transportation. Provided both outpatient SA and MH resource sheets, both highlighted MCM numbers, MH list included Port and I[facility] walk in times, and SA list included list of 6 detox facilities with emphasis on local [facility]. Consulted with Dr. Pierce regarding the management and care of patient. ED Physician in agreement with recommendations.
== END 2020-03-01 14:07 | disposition home or self-care (01) ==
LOC: ER 04:06
DX: R45.850 Homicidal ideations (principal); F16.90 Hallucinogen use, unspecified, uncomplicated; R00.0 Tachycardia, unspecified; Z88.0 Allergy status to penicillin
CPT/HCPCS: 93005; 99284; 96374; 96375; 36415; 80307 ×4; 85025; 80053; 81001; 93010; J1200; J2060

== ENCOUNTER 2020-03-14 17:55 | Emergency (ER) | payer SELFPAY ==
--- NOTE | 2020-03-14 18:41 | ER Document Report ---
ED Medical Screen (RME) - General Chief Complaint: Arm Pain Stated Complaint: ARM PAIN - LEFT Notes: 29-year-old male past medical history of Crohn's disease presenting today with left arm pain starting 1 day after he was brought into the emergency department for LSD on March 01. He had an IV placed in the left arm during that visit. Pain in his left bicep has been constant since then worsening in the last day. States he has pain lifting his arm. Is not able to carry anything with his left arm. States that his left arm is cold and feels chilly. He denies any IV drug use. Is not taking any medications at this time. He has tried Tylenol for his pain with no relief in his symptoms. Is a smoker. No family history of DVT. PE: Left bicep is tender to palpation. Left hand is cooler than the right hand. Patient has good radial pulses. 2+ capillary refill. Decreased strength in the left arm. I have greeted and performed a rapid initial assessment of this patient. A comprehesive ED assessment and evaluation of this patient, analysis of test results and completion of the medical decision-making process will be conducted by additional ED providers. TRAVEL OUTSIDE OF THE [place] IN LAST 30 DAYS: No - Related Data Allergies/Adverse Reactions: amoxicillin Allergy (Verified 01/25/20 13:39) Penicillins Allergy (Verified 01/25/20 13:39) Past Medical History - Social History Frequency of alcohol use: Occasional Neurological Medical History: Reports: Hx Seizures Renal/ Medical History: Reports: Hx Kidney Stones. Denies: Hx Peritoneal Dialysis GI Medical History: Reports: Hx Crohn's Disease - Immunizations Immunizations up to date: Yes Hx Diphtheria, Pertussis, Tetanus Vaccination: Yes Physical Exam - Vital signs Vitals: Temp Pulse Resp BP Pulse Ox 98.6 F 67 16 124/72 99 03/14/20 18:09 03/14/20 18:09 03/14/20 18:09 03/14/20 18:09 03/14/20 18:09 Course - Vital Signs Vital signs: Temp Pulse Resp BP Pulse Ox 98.6 F 67 16 124/72 99 03/14/20 18:09 03/14/20 18:09 03/14/20 18:09 03/14/20 18:09 03/14/20 18:09
[2020-03-14 19:08] LABS: ABSOLUTE EOSINOPHILS # (AUTO) 0.2 10^3/uL (0.0-0.6); ABSOLUTE LYMPHOCYTES (AUTO) 2.6 10^3/uL (0.5-4.7); ABSOLUTE MONOCYTES (AUTO) 0.5 10^3/uL (0.1-1.4); ABSOLUTE NEUT (AUTO) 4.3 10^3/uL (1.7-8.2); BASOPHILS % (AUTO) 0.5 % (0-2); HEMATOCRIT 46.9 % (37.9-51.0); HEMOGLOBIN 16.1 g/dL (13.5-17.0); MEAN CORPUSCULAR HEMOGLOBIN 31.6 pg (27.0-33.4); MEAN CORPUSCULAR HGB CONC 34.4 g/dL (32.0-36.0); MEAN CORPUSCULAR VOLUME 92 fl (80-97); MONOCYTES % (AUTO) 6.2 % (3-13); PLATELET COUNT 211 10^3/uL (150-450); RED CELL DISTRIBUTION WIDTH 13.1 % (11.5-14.0); SEGMENTED NEUTROPHILS % (AUTO) 56.3 % (42-78); TOTAL CELLS COUNTED % (AUTO) 100 %; WHITE BLOOD COUNT 7.6 10^3/uL (4.0-10.5)
[2020-03-14 19:16] LABS: INTERNATIONAL RATION (INR) 1.03; PROTHROMBIN TIME 13.7 SEC (11.4-15.4)
[2020-03-14 19:17] LABS: PARTIAL THROMBOPLASTIN TIME 28.4 SEC (23.5-35.8)
[2020-03-14 19:28] LABS: ALBUMIN 4.9 g/dL (3.5-5.0); ALKALINE PHOSPHATASE 56 U/L (38-126); ANION GAP 7 (5-19); ASPARTATE AMINO TRANSFERASE 24 U/L (17-59); BILIRUBIN,TOTAL 0.7 mg/dL (0.2-1.3); BLOOD UREA NITROGEN 12 mg/dL (7-20); CALCIUM 9.6 mg/dL (8.4-10.2); CARBON DIOXIDE 29 mmol/L (22-30); CHLORIDE 103 mmol/L (98-107); POTASSIUM 4.3 mmol/L (3.6-5.0); TOTAL PROTEIN 7.7 g/dL (6.3-8.2)
[2020-03-14 19:43] LABS: GLUCOSE 67 mg/dL (75-110)
--- NOTE | 2020-03-14 20:13 | ER Document Report ---
Doctor's Note Notes: 03/14/20 20:12 Was notified by Doppler tech that patient has SVT of entire cephalic vein. Pending official read.
--- NOTE | 2020-03-14 20:44 | RADIOLOGY REPORT (SQ) ---
EXAM DESCRIPTION: US EXTREMITY VEINS UNILATERAL COMPLETED DATE/TME: 03/14/2020 18:39 CLINICAL HISTORY: 29 years Male left arm pain COMPARISON: None. TECHNIQUE: Duplex imaging performed to evaluate the left upper extremity venous structures. Compression imaging and augmentation imaging performed. FINDINGS: The left internal jugular vein, subclavian vein and axillary vein are patent with normal waveforms. Brachial veins and basilic vein are patent and normally compressible. There is acute nonocclusive thrombus in the cephalic vein. Radial and ulnar veins are patent. IMPRESSION: No evidence of DVT in the left upper extremity Acute nonocclusive thrombus in the cephalic vein
--- NOTE | 2020-03-14 21:01 | ER Document Report ---
ED Extremity Problem, Upper - General Chief Complaint: Arm Pain Stated Complaint: ARM PAIN - LEFT Time Seen by Provider: 03/14/20 20:55 Notes: Patient is a 29 year old male that comes to the emergency department for chief complaint of left arm pain and swelling sensation. He reports a lot of pain with movement especially of the biceps of the left arm. He denies shoulder pain, forearm, wrist, hand pain. He did have an IV placed in the same side on 03/01/2020 on a visit to this emergency department. He denies fever, he denies IV drug abuse recently or in the past, he denies any other complaints. He does have a history of Crohn's disease. He denies personal or family history of DVT. TRAVEL OUTSIDE OF THE [place] IN LAST 30 DAYS: No - Related Data Allergies/Adverse Reactions: amoxicillin Allergy (Verified 01/25/20 13:39) Penicillins Allergy (Verified 01/25/20 13:39) Past Medical History - General Information source: Patient - Social History Smoking Status: Current Every Day Smoker Frequency of alcohol use: Occasional Drug Abuse: None Lives with: Family Family History: Reviewed & Not Pertinent Neurological Medical History: Reports: Hx Seizures Renal/ Medical History: Reports: Hx Kidney Stones. Denies: Hx Peritoneal Dialysis GI Medical History: Reports: Hx Crohn's Disease - Immunizations Immunizations up to date: Yes Hx Diphtheria, Pertussis, Tetanus Vaccination: Yes Review of Systems - Review of Systems Constitutional: No symptoms reported EENT: No symptoms reported Cardiovascular: No symptoms reported Respiratory: No symptoms reported Gastrointestinal: No symptoms reported Genitourinary: No symptoms reported Male Genitourinary: No symptoms reported Musculoskeletal: See HPI Skin: See HPI Hematologic/Lymphatic: No symptoms reported Neurological/Psychological: No symptoms reported Physical Exam - Vital signs Vitals: Temp Pulse Resp BP Pulse Ox 98.6 F 67 16 124/72 99 03/14/20 18:09 03/14/20 18:09 03/14/20 18:09 03/14/20 18:09 03/14/20 18:09 - Notes Notes: GENERAL: Alert, interacts well. No acute distress. HEAD: Normocephalic, atraumatic. EYES: Pupils equal, round, and reactive to light. Extraocular movements intact. ENT: Oral mucosa moist, tongue midline. Oropharynx unremarkable. Airway patent. LUNGS: Clear to auscultation bilaterally, no wheezes, rales, or rhonchi. No respiratory distress. Non-tender chest wall. HEART: Regular rate and rhythm. No murmur ABDOMEN: Soft, non-tender. Non-distended. EXTREMITIES: Left upper proximal arm at the top of the bicep extending down midline to almost the antecubital space with tenderness and what appears to be a midline palpable cord consistent with phlebitis. There is mild erythema but no significant erythema, no severe tenderness, no abnormal heat to the area. Range of motion at the shoulder and elbow are intact, normal distal neurovascular exam, normal pipe covering molder. Otherwise unremarkable. BACK: no cervical, thoracic, lumbar midline tenderness. No saddle anesthesia, normal distal neurovascular exam. Moves all extremities in full range of motion. NEUROLOGICAL: Alert and oriented x3. Normal speech. Cranial nerves II through XII grossly intact. Strength 5/5 in all extremities. PSYCH: Normal affect, normal mood. SKIN: Warm, dry, normal turgor. No rashes or lesions noted. Course - Re-evaluation Re-evalutation: Patient's exam is consistent with phlebitis without secondary infection. Doppler shows superficial venous thrombosis in the cephalic vein of the left arm but no deep vein thrombosis. I discussed in detail with patient. I discussed with Dr. Hanks, recommendation is 324 mg of aspirin daily for 2 weeks, warm compresses, follow-up with primary care, and return precautions. Provided with work release on request by patient. Discussed details, follow-up, return cautions. Patient states appreciation and agreement with plan. - Vital Signs Vital signs: Temp Pulse Resp BP Pulse Ox 98.2 F 60 18 107/59 L 97 03/14/20 22:00 03/14/20 22:00 03/14/20 22:00 03/14/20 22:00 03/14/20 22:00 - Laboratory Result Diagrams: 03/14/20 18:53 03/14/20 18:53 Laboratory results interpreted by me: 03/14/20 03/14/20 18:53 21:56 Glucose 67 L POC Glucose 113 H Discharge - Discharge Clinical Impression: Left arm pain, Phlebitis Superficial venous thrombosis of arm Qualifiers: Laterality: left Qualified Code(s): I82.612 - Acute embolism and thrombosis of superficial veins of left upper extremity Condition: Stable Disposition: HOME, SELF-CARE Instructions: Oral Narcotic Medication ([facility]) Additional Instructions: There is a blood clot in the superficial vein of your left arm called the cephalic vein, there is also inflammation of the vein (phlebitis). Take the full dose aspirin daily as prescribed for 2 weeks. I recommend the famotidine prescribed along with this to avoid stomach upset. I also recommend warm compresses to the area and if possible rest the arm. Follow-up with primary care. Return if you worsen including increased swelling, developing redness or severe pain, fever, difficulty breathing, passing out, or any other concerning symptoms. Prescriptions: Aspirin [Aspirin 325 mg Tablet] 325 mg PO DAILY 14 Days #14 tablet Famotidine [Pepcid 20 mg Tablet] 20 mg PO BID 14 Days #28 tablet Forms: Return to Work
[2020-03-14] MEDS ORDERED: ASPIRIN 325 MG TABLET PO ONE (21:10)
[2020-03-14] MEDS ORDERED: HYDROCODONE/ACETAMINOPHEN 5-325 MG (6 TAB/ER DISP) PO PRN (21:11)
[2020-03-14] MEDS ORDERED: FAMOTIDINE 20 MG TABLET PO ONE (21:16)
[2020-03-14 22:12] VITALS: BP 107/59
== END 2020-03-14 22:10 | disposition home or self-care (01) ==
LOC: ER 17:55
DX: I82.612 Acute embolism and thrombosis of superficial veins of left upper extremity (principal); I80.9 Phlebitis and thrombophlebitis of unspecified site; M79.602 Pain in left arm; M79.89 Other specified soft tissue disorders; Z88.0 Allergy status to penicillin; F17.200 Nicotine dependence, unspecified, uncomplicated
CPT/HCPCS: 36415; 80053; 82962; 85025; 85610; 85730; 93971; 99284